=== PATIENT | male | born 1945 | race Caucasian/White ===

== ENCOUNTER 2021-10-12 17:35 | Observation (INO) | payer MEDICARE, OTHER ==
[2021-10-12 18:15] VITALS: TEMP 97.3
[2021-10-12] MEDS ORDERED: ASPIRIN 81 MG PO STA (19:53)
--- NOTE | 2021-10-12 20:24 | ED ---
General Adult HPI - General Chief complaint: Chest Pain Stated complaint: Abnormal EKG-Sent from [facility] Time Seen by Provider: 10/12/21 19:32 Source: patient, RN notes reviewed, old records reviewed Mode of arrival: ambulatory Limitations: no limitations - History of Present Illness Initial comments: Patient is a 76-year-old male with past medical history remarkable for cataract surgery this morning who incidentally was found to be in atrial fibrillation rate controlled at a surgery. He called his PCP who instructed him to come to the emergency department for evaluation. Denies any acute complaints including chest pain, shortness breath, abdominal pain, nausea, vomiting. States he has no prior history of atrial fibrillation. States he does have a history of DVT over 10 years ago. Denies any other acute complaints at this time. Patient w ould like to go home. He was evaluated when he was placed in a room. - Related Data Home Medications Medication Instructions Recorded Confirmed Ketorolac 0.5% Ophth Soln [Acular 1 drops RIGHT EYE QID 10/12/21 10/12/21 0.5%] Ofloxacin 0.3% Ophth Soln [Ocuflox 1 drops RIGHT EYE QID 10/12/21 10/12/21 Ophth Soln] prednisoLONE ACETATE 1% OPHTH 1 drops RIGHT EYE QID 10/12/21 10/12/21 [Pred Forte 1%] Allergies Allergy/AdvReac Type Severity Reaction Status Date / Time No Known Allergies Allergy Unverified 10/12/21 20:48 Review of Systems ROS Statement: Those systems with pertinent positive or pertinent negative responses have been documented in the HPI. Review of Systems: CONST: Denies fever EYES: Denies blurry vision ENT: Denies nasal congestion C/V: Denies Chest pain RESP: Denies shortness of breath GI: Denies abdominal pain : Denies dysuria SKIN: Denies rash. MSK: Denies joint pain. NEURO: Denies headache ROS Other: All systems not noted in ROS Statement are negative. General Exam - General Exam Comments Initial Comments: General: Appears in no acute distress. HEAD: Normal with no signs of head trauma. EYES: EOMI. Pupils are equal bilaterally. Patient does have an eye shield over the right eye the site of a cataract surgery this morning. ENT: Hearing grossly intact, normal oropharynx. RESPIRATORY: Clear breath sounds bilaterally. No wheezes, rales, or rhonchi. C/V: Irregular rhythm with a irregular rate. S1 and S2 auscultated. No pulses are 2+ and intact throughout. No peripheral edema. ABD: Abd is soft, nontender, nondistended EXT: Normal range of motion, no obvious deformity SKIN: No rashes or lesions observed on exposed skin. NEURO: Alert and oriented 4. No focal deficits. Limitations: no limitations Course Vital Signs 10/12/21 18:11 Temperature 97.3 F L Pulse Rate 106 H Respiratory 19 Rate Blood Pressure 158/79 O2 Sat by Pulse 97 Oximetry Medical Decision Making - Medical Decision Making Patient is a 76-year-old male in good health who presents emergency Department with incidental finding of new onset atrial fibrillation that is currently rate controlled. He is on no cardiac medications. We'll obtain basic cardiac labs at this time as well as an EKG and chest x-ray. I will provide him with an aspirin. He will likely be admitted to the hospital. Patient was in agreement this plan. Patient's EKG shows atrial fibrillation without RVR. No signs of acute ischemia. Chest x-ray shows no acute cardiopulmonary process. Laboratory studi es are remarkable for a normal troponin. Remainder of the labs are unremarkable. Covid swab was negative. After the patient on the findings of his labs and imaging. Due to his new onset atrial fibrillation the difficulty following up with outpatient cardiology at this time secondary to the pandemic I did recommend that we admit him to the hospital for cardiology evaluation. I will order an echo as well as a heparin drip for him. Patient was in agreement this plan. I consult to cardiology to evaluate the patient the morning. I spoke with the admitting team, LILY Bishop who stepped of the patient. Patient was therefore admitted to a telemetry bed in stable condition. - Lab Data Result diagrams: 10/12/21 20:36 10/12/21 20:36 Lab Results 10/12/21 10/12/21 10/12/21 Range/Units 20:36 20:36 20:36 WBC 7.4 (3.8-10.6) k/uL RBC 5.38 (4.30-5.90) m/uL Hgb 17.0 (13.0-17.5) gm/dL Hct 51.8 (39.0-53.0) % MCV 96.3 (80.0-100.0) fL MCH 31.5 (25.0-35.0) pg MCHC 32.7 (31.0-37.0) g/dL RDW 12.0 (11.5-15.5) % Plt Count 200 (150-450) k/uL MPV 8.2 Neutrophils % 60 % Lymphocytes % 28 % Monocytes % 6 % Eosinophils % 1 % Basophils % 1 % Neutrophils # 4.4 (1.3-7.7) k/uL Lymphocytes # 2.1 (1.0-4.8) k/uL Monocytes # 0.5 (0-1.0) k/uL Eosinophils # 0.1 (0-0.7) k/uL Basophils # 0.1 (0-0.2) k/uL PT 10.4 (9.0-12.0) sec INR 1.0 (<1.2) APTT 23.3 (22.0-30.0) sec Sodium 140 (137-145) mmol/L Potassium 5.0 (3.5-5.1) mmol/L Chloride 106 (98-107) mmol/L Carbon Dioxide 25 (22-30) mmol/L Anion Gap 9 mmol/L BUN 26 H (9-20) mg/dL Creatinine 0.94 (0.66-1.25) mg/dL Est GFR (CKD-EPI)AfAm 90 (>60 ml/min/1.73 sqM) Est GFR (CKD-EPI)NonAf 78 (>60 ml/min/1.73 sqM) Glucose 113 H (74-99) mg/dL Calcium 9.6 (8.4-10.2) mg/dL Magnesium 2.2 (1.6-2.3) mg/dL Total Bilirubin 1.2 (0.2-1.3) mg/dL AST 25 (17-59) U/L ALT 27 (4-49) U/L Alkaline Phosphatase 48 (38-126) U/L Troponin I (0.000-0.034) ng/mL Total Protein 7.1 (6.3-8.2) g/dL Albumin 4.3 (3.5-5.0) g/dL 10/12/ Range/Units 20:36 WBC (3.8-10.6) k/uL RBC (4.30-5.90) m/uL Hgb (13.0-17.5) gm/dL Hct (39.0-53.0) % MCV (80.0-100.0) fL MCH (25.0-35.0) pg MCHC (31.0-37.0) g/dL RDW (11.5-15.5) % Plt Count (150-450) k/uL MPV Neutrophils % % Lymphocytes % % Monocytes % % Eosinophils % % Basophils % % Neutrophils # (1.3-7.7) k/uL Lymphocytes # (1.0-4.8) k/uL Monocytes # (0-1.0) k/uL Eosinophils # (0-0.7) k/uL Basophils # (0-0.2) k/uL PT (9.0-12.0) sec INR (<1.2) APTT (22.0-30.0) sec Sodium (137-145) mmol/L Potassium (3.5-5.1) mmol/L Chloride (98-107) mmol/L Carbon Dioxide (22-30) mmol/L Anion Gap mmol/L BUN (9-20) mg/dL Creatinine (0.66-1.25) mg/dL Est GFR (CKD-EPI)AfAm (>60 ml/min/1.73 sqM) Est GFR (CKD-EPI)NonAf (>60 ml/min/1.73 sqM) Glucose (74-99) mg/dL Calcium (8.4-10.2) mg/dL Magnesium (1.6-2.3) mg/dL Total Bilirubin (0.2-1.3) mg/dL AST (17-59) U/L ALT (4-49) U/L Alkaline Phosphatase (38-126) U/L Troponin I <0.012 (0.000-0.034) ng/mL Total Protein (6.3-8.2) g/dL Albumin (3.5-5.0) g/dL - EKG Data -: EKG Interpreted by Me EKG Comments: 12-lead Electrocardiogram Interpretation Note EKG was reviewed and interpreted by myself. 12-lead ECG performed at 1809 is interpreted by me as revealing atrial fibrillation at a rate of 76 beats per minute. Gillespie is normal. AR interval is unobtainable. QRS duration is 138 ms. QTC is 456 ms.. As an isolated T-wave inversion in lead III.. R wave progr ession across the precordium was satisfactory. By my interpretation this EKG is non-diagnostic for acute ischemia. This is new onset atrial fibrillation. No prior EKG for comparison. Disposition Clinical Impression: Atrial fibrillation, History of cataract surgery Disposition: ADMITTED IP TO THIS HOSP Condition: Stable
[2021-10-12 21:05] LABS: Basophils # (A) 0.1 k/uL (0-0.2); Basophils % (A) 1 %; Eosinophils # (A) 0.1 k/uL (0-0.7); Eosinophils % (A) 1 %; HCT 51.8 % (39.0-53.0); Lymphocytes # (A) 2.1 k/uL (1.0-4.8); Lymphocytes % (A) 28 %; MCH 31.5 pg (25.0-35.0); MCHC 32.7 g/dL (31.0-37.0); MCV 96.3 fL (80.0-100.0); Mean Platelet Volume 8.2; Monocytes # (A) 0.5 k/uL (0-1.0); Monocytes % (A) 6 %; Neutrophils # (A) 4.4 k/uL (1.3-7.7); Neutrophils % (A) 60 %; Platelet Count 200 k/uL (150-450); RBC 5.38 m/uL (4.30-5.90); WBC 7.4 k/uL (3.8-10.6)
--- NOTE | 2021-10-12 21:14 | XR ---
EXAMINATION TYPE: XR chest 2V DATE OF EXAM: 10/12/2021 COMPARISON: NONE HISTORY: Abnormal cardiogram. Atrial fibrillation. TECHNIQUE: 2 views FINDINGS: Heart and mediastinum are normal. Lungs are clear. Diaphragm is normal. Bony thorax is inta ct. There are chest leads. IMPRESSION: No active cardiopulmonary disease. Normal heart.
[2021-10-12 21:15] LABS: Partial Thromboplastin Time 23.3 sec (22.0-30.0); Prothrombin Time 10.4 sec (9.0-12.0)
[2021-10-12 21:32] LABS: Albumin 4.3 g/dL (3.5-5.0); Calcium 9.6 mg/dL (8.4-10.2); Magnesium 2.2 mg/dL (1.6-2.3); Total Bilirubin 1.2 mg/dL (0.2-1.3); Total Protein 7.1 g/dL (6.3-8.2)
[2021-10-12] MEDS ORDERED: HEPARIN SOD,PORK IN 0.45% NACL 25,000 UNIT in 0.45% NACL 1 250ML.BAG IV SCH (21:45)
[2021-10-12] MEDS ORDERED: HEPARIN SODIUM 1,000 UN/ML (10ML VL) IV ONE (21:45)
[2021-10-12] MEDS ORDERED: HEPARIN SODIUM 1,000 UN/ML (10ML VL) IV PRN (21:45)
[2021-10-12] MEDS ORDERED: NALOXONE 0.4 MG/ML 1 ML VIAL IV PRN (21:56)
[2021-10-12] MEDS: OFLOXACIN 0.3% OPHTH DROPS 5 ML BOTTLE RIGHT EYE SCH (22:41)
[2021-10-12] MEDS: KETOROLAC 0.5% OPHTH DROPS 5 ML BTL RIGHT EYE SCH (22:41)
[2021-10-12] MEDS: prednisoLONE ACETATE 1% OPHTH DROPS 5 ML BTL RIGHT EYE SCH (22:42)
[2021-10-13 04:12] LABS: Basophils # (A) 0.1 k/uL (0-0.2); Basophils % (A) 1 %; Eosinophils # (A) 0.1 k/uL (0-0.7); Eosinophils % (A) 2 %; HCT 48.3 % (39.0-53.0); HGB 15.9 gm/dL (13.0-17.5); Lymphocytes # (A) 2.3 k/uL (1.0-4.8); Lymphocytes % (A) 35 %; MCH 31.8 pg (25.0-35.0); MCHC 32.9 g/dL (31.0-37.0); MCV 96.8 fL (80.0-100.0); Mean Platelet Volume 8.4; Monocytes # (A) 0.7 k/uL (0-1.0); Monocytes % (A) 10 %; Neutrophils # (A) 3.2 k/uL (1.3-7.7); Neutrophils % (A) 49 %; Platelet Count 180 k/uL (150-450); RBC 4.99 m/uL (4.30-5.90); RDW 12.2 % (11.5-15.5); WBC 6.6 k/uL (3.8-10.6)
[2021-10-13 04:21] LABS: African American GFR (CKD) >90 (>60 ml/min/1.73 sqM); Anion Gap 5 mmol/L; Blood Urea Nitrogen 23 mg/dL (9-20); Calcium 9.2 mg/dL (8.4-10.2); Carbon Dioxide 27 mmol/L (22-30); Chloride 107 mmol/L (98-107); Glucose 105 mg/dL (74-99); Non-African American GFR(CKD) 82 (>60 ml/min/1.73 sqM); Potassium 4.1 mmol/L (3.5-5.1); Sodium 139 mmol/L (137-145)
[2021-10-13 04:23] LABS: Partial Thromboplastin Time 36.8 sec (22.0-30.0); Prothrombin Time 10.7 sec (9.0-12.0)
[2021-10-13 07:03] VITALS: BP 152/86; PULSE 81; RESP 17
[2021-10-13] MEDS ORDERED: APIXABAN 5 MG TAB PO SCH (09:30)
[2021-10-13] MEDS: prednisoLONE ACETATE 1% OPHTH DROPS 5 ML BTL RIGHT EYE SCH (10:03)
[2021-10-13] MEDS: KETOROLAC 0.5% OPHTH DROPS 5 ML BTL RIGHT EYE SCH (10:03)
[2021-10-13] MEDS: OFLOXACIN 0.3% OPHTH DROPS 5 ML BOTTLE RIGHT EYE SCH (10:03)
--- NOTE | 2021-10-13 10:08 | P.HPIM ---
History of Present Illness Please consider this combined H&P and discharge summary This is a pleasant 76 years old male with no significant past medical history Patient was having cataract surgery yesterday when he noticed he has an abnormal EKG with Prashant upton so he was referred to the PCP and the [facility] who referred him to the emergency room Patient denies any chest pain or dyspnea. No abdominal pain. No change in urine or bowel habits. No fever. He has a dressing over his right eye. He never smoked, no alcohol or illicit drugs Vitals stable, heart rate was 106, R on was 60-81. Pulse are stable. Labs including CBC, INR, BMP and liver enzymes are unremarkable. On in 3 are negative as an 0.012. Torres virus not detected EKG showed atrial fibrillation at [address]-T changes and QTC 456 Chest x-ray: No acute process. Emergency room patient was started on heparin drip. Review of Systems CONSTITUTIONAL: No fever, no malaise, no fatigue. HEENT: No recent visual problems or hearing problems. Denied any sore throat. CARDIOVASCULAR: No orthopnea, PND, no palpitations, no syncope. PULMONARY: No shortness of breath, no cough, no hemoptysis. GASTROINTESTINAL: No diarrhea, no nausea, no vomiting, no abdominal pain. Normoactive bowel sounds. NEUROLOGICAL: No headaches, no weakness, no numbness. HEMATOLOGICAL: Denies any bleeding or petechiae. GENITOURINARY: Denies any burning micturition, frequency, or urgency. MUSCULOSKELETAL/RHEUMATOLOGICAL: Denies any joint pain, swelling, or any muscle pain. ENDOCRINE: Denies any polyuria or polydipsia. Medications and Allergies Home Medications Medication Instructions Recorded Confirmed Type Ketorolac 0.5% Ophth Soln [Acular 1 drops RIGHT EYE QID 10/12/21 10/12/21 Hist ory 0.5%] Ofloxacin 0.3% Ophth Soln [Ocuflox 1 drops RIGHT EYE QID 10/12/21 10/12/21 History Ophth Soln] prednisoLONE ACETATE 1% OPHTH 1 drops RIGHT EYE QID 10/12/21 10/12/21 History [Pred Forte 1%] Apixaban [Eliquis] 5 mg PO BID #60 tab 10/13/21 Rx Allergies Allergy/AdvReac Type Severity Reaction Status Date / Time No Known Allergies Allergy Unverified 10/12/21 20:48 Physical Exam Vitals: Vital Signs Temp Pulse Resp BP Pulse Ox 10/13/21 07:00 81 17 152/86 98 10/13/21 02:00 60 19 139/80 96 10/12/21 18:11 97.3 F L 106 H 19 158/79 97 Intake and Output 10/12/21 10/13/21 10/13/21 22:59 06:59 14:59 Intake Total 65.833 Balance 65.833 Intake: Intake, IV Titration 65.833 Amount Heparin Sod,Pork in 0.45% 65.833 NaCl 25,000 unit In 0.45 % NaCl 1 250ml.bag @ 10. 702 UNITS/KG/HR 10 mls/hr IV .Q24H [facility] Rx#: [id number] Other: Weight 93.44 kg GENERAL: The patient is alert and oriented x3, not in any acute distress. Well developed, well nourished. -HEENT: Pupils are round and equally reacting to light. EOMI. No scleral icterus. No conjunctival pallor. Normocephalic, atraumatic. No pharyngeal erythema. No thyromegaly. Patch on his right eye CARDIOVASCULAR: S1 and S2 present. No murmurs, rubs, or gallops. PULMONARY: Chest is clear to auscultation, no wheezing or crackles. ABDOMEN: Soft, nontender, nondistended, normoactive bowel sounds. No palpable organomegaly. MUSCULOSKELETAL: No joint swelling or deformity. EXTREMITIES: No cyanosis, clubbing, or pedal edema. NEUROLOGICAL: Gross neurological examination did not reveal any focal deficits. SKIN: No rashes. No petechiae Results CBC & Chem 7: 10/13/21 03:34 10/13/21 03:34 Labs: Abnormal Lab Results - Last 24 Hours (Table) 10/12/21 10/13/21 10/13/21 Range/Units 20:36 03:34 03:34 APTT 36.8 H (22.0-30.0) sec BUN 26 H 23 H (9-20) mg/dL Glucose 113 H 105 H (74-99) mg/dL Assessment and Plan Assessment: New-onset A. fib Recent history of right eye cataract Plan: This is a pleasant 76 years old male who presents with new onset A. fib. Cardiology consult. I discussed the case with Dr. Gregory who recommended to start him on Eliquis and cleared him for discharge after that with her condition for follow-up in 2 weeks, patient made aware of these recommendations states he will follow-up I explained to the patient the benefits of the risk of liquids including but not limited to the risk of brain bleed and he agrees with treatment for now medication are reviewed.. Continue same treatment. Continue with symptomatic treatment. Resume home medication. Monitor lytes and vitals. DVT and GI prophylaxis. Further recommendations depends on the clinical course of the patient DVT prophylaxis: Eliquis I discussed with the dependency case manager Geena, patient has [facility] therefore this facility will cover his Eliquis with 1 month of free coupon, and he was informed to follow up his [facility] office this coming week for further Eliquis refill. Also patient was instructed to follow up with his [facility] office in one week and he agrees to call and make appointment
--- NOTE | 2021-10-13 12:01 | ECHOF ---
Referral Reason:new onset afib MEASUREMENTS -------- HEIGHT: 180.3 cm WEIGHT: 93.4 kg BP: 139/80 RVIDd: 3.6 cm (< 3.3) IVSd: 1.2 cm (0.6 - 1.1) LVIDd: 4.7 cm (3.9 - 5.3) LVPWd: 1.2 cm (0.6 - 1.1) IVSs: 1.8 cm LVIDs: 2.9 cm LVPWs: 1.8 cm LA Diam: 4.3 cm (2.7 - 3.8) LAESV Index (A-L): 39.81 ml/m Ao Diam: 3.7 cm (2.0 - 3.7) AV Cusp: 2.4 cm (1.5 - 2.6) MV EXCURSION: 15.271 mm (> 18.000) MV EF SLOPE: 157 mm/s (70 - 150) EPSS: 1.8 cm AR PHT: 592 ms RAP: 5.00 mmHg RVSP: 40.70 mmHg FINDINGS -------- Atrial fibrillation. This was a technically good study. The left ventricular size is normal. There is borderline concentric left ventricular hypertrophy. Overall left ventricular systolic function is normal with, an EF between 60 - 65 %. The right ventricle is mildly enlarged. LA is moderately dilated 34-39 ml/m2 The right atrium is normal in size. Interatrial and interventricular septum intact. There is mild aortic regurgitation. Mild mitral regurgitation is present. Mild tricuspid regurgitation present. There is mild pulmonary hypertension. The right ventricular systolic pressure, as measured by Doppler, is 40.70mmHg. Trace/mild (physiologic) pulmonic regurgitation. The aortic root size is normal. Normal inferior vena cava with normal inspiratory collapse consistent with estimated right atrial pre ssure of 5 mmHg. The inferior vena cava is mildly dilated. There is no pericardial effusion. CONCLUSIONS -------- 1. The left ventricular size is normal. 2. There is borderline concentric left ventricular hypertrophy. 3. Overall left ventricular systolic function is normal with, an EF between 60 - 65 %. 4. The right ventricle is mildly enlarged. 5. LA is moderately dilated 34-39 ml/m2 6. There is mild aortic regurgitation. 7. Mild mitral regurgitation is present. 8. Mild tricuspid regurgitation present. 9. There is mild pulmonary hypertension. 10. The right ventricular systolic pressure, as measured by Doppler, is 40.70mmHg. 11. Trace/mild (physiologic) pulmonic regurgitation. 12. The inferior vena cava is mildly dilated. 13. There is no pericardial effusion. MANUAL QA TESTER: Latisha Franklin RDCS
--- NOTE | 2021-10-13 12:55 | P.CRDCN ---
History of Present Illness Consult date: 10/13/21 History of present illness: HISTORY OF PRESENT ILLNESS: This is a 76 year old male with no significant past medical history. The patient does not follow with a head of marketing. We have been asked to see the patient in consultation for atrial fibrillation. Patient examined at the bedside. The patient underwent cataract surgery yesterday. The patient was found to be in atrial fibrillation and was directed to the ER for further evaluation. The patient denies a history of atrial fibrillation. The patients heart rate has been controlled. He was started on IV heparin. He denies any chest pain or pressure. Denies SOB. Denies palpitations. The patient is a nonsmoker. He denies any drug use. He states he is a daily wine drinker and drinks a pproximately 3 glasses of wine per day. He [facility]. He denies ever having a cardiac workup in the past. He does report that his dad had a "hole in his heart" EKG reveals atrial fibrillation with controlled ventricular rate Chest xray no active cardiopulmonary disease Laboratory data: WBC 6.6. Hemoglobin 15.9. Platelet count 180. Sodium 139. Potassium 4.1. BUN 23. Creatinine 0.90. Troponin negative 3. Echocardiogram obtained revealed ejection fraction 60-65%, mild aortic regurgitation, mild mitral regurgitation, mild tricuspid regurgitation, and mild pulmonary hypertension REVIEW OF SYSTEMS: At the time of my exam: CONSTITUTIONAL: Denies fever or chills. HEENT: Denies blurred vision, vision changes, or eye pain. Denies hemoptysis CARDIOVASCULAR: Denies chest pain. Denies orthopnea. Denies PND. Denies palpitations RESPIRATORY: Denies shortness of breath. GASTROINTESTINAL: Denies abdominal pain. Denies nausea or vomiting. HEMATOLOGIC: Denies bleeding disorders. GENITOURINARY: Denies any blood in urine. SKIN: Denies pruitis. Denies rash. PHYSICAL EXAM: VITAL SIGNS: Reviewed. GENERAL: Well-developed in no acute distress. HEENT: Head is normocephalic. Pupils are equal, round. Sclerae anicteric. Mucous membranes of the mouth are moist. Neck supple. No JVD or thyromegaly LUNGS: Respirations even and unlabored. Lungs essentially clear to auscultation bilaterally. HEART: Irregular rate and rhythm. S1 and S2 heard. ABDOMEN: Soft. Nondistended. Nontender. EXTREMITIES: Normal range of motion. No clubbing or cyanosis. Peripheral pulses intact. No lower extremity edema NEUROLOGIC: Awake and alert. Oriented x 3. ASSESSMENT: S/P cataract surgery Newly diagnosed persistent atrial fibrillation, duration of afib unknown Daily alcohol use PLAN: Check TSH 2D echo obtained and reviewed No need for beta manda at this time Begin Eliquis 5mg BID Further recommendations pending patient course Nurse practitioner note has been reviewed by physician. Signing provider agrees with the documented findings, assessment, and plan of care. Medications and Allergies Home Medications Medication Instructions Recorded Confirmed Type Ketorolac 0.5% Ophth Soln [Acular 1 drops RIGHT EYE QID 10/12/21 10/12/21 History 0.5%] Ofloxacin 0.3% Ophth Soln [Ocuflox 1 drops RIGHT EYE QID 10/12/21 10/12/21 History Ophth Soln] prednisoLONE ACETATE 1% OPHTH 1 drops RIGHT EYE QID 10/12/21 10/12/21 History [Pred Forte 1%] Apixaban [Eliquis] 5 mg PO BID #60 tab 10/13/21 Rx Allergies Allergy/AdvReac Type Severity Reaction Status Date / Time No Known Allergies Allergy Unverified 10/12/21 20:48 Physical Exam Vitals: Vital Signs Temp Pulse Resp BP Pulse Ox 10/13/21 07:00 81 17 152/86 98 10/13/21 02:00 60 19 139/80 96 10/12/21 18:11 97.3 F L 106 H 19 158/79 97 Intake and Output 10/12/21 10/13/21 10/13/21 22:59 06:59 14:59 Intake Total 65.833 Balance 65.833 Intake: Intake, IV Titration 65.833 Amount Heparin Sod,Pork in 0.45% 65.833 NaCl 25,000 unit In 0.45 % NaCl 1 250ml.bag @ 10. 702 UNITS/KG/HR 10 mls/hr IV .Q24H [facility] Rx#: [id number] Other: Weight 93.44 kg Results 10/13/21 03:34 10/13/21 03:34 Cardiac Enzymes 10/12/21 10/12/21 10/13/21 Range/Units 20:36 20:36 00:45 AST 25 (17-59) U/L Troponin I <0.012 <0.012 (0.000-0.034) ng/mL 10/13/21 Range/Units 03:34 AST (17-59) U/L Troponin I <0.012 (0.000-0.034) ng/mL Coagulation 10/12/21 10/13/21 Range/Units 20:36 03:34 PT 10.4 10.7 (9.0-12.0) sec APTT 23.3 36.8 H (22.0-30.0) sec CBC 10/12/21 10/13/21 Range/Units 20:36 03:34 WBC 7.4 6.6 (3.8-10.6) k/uL RBC 5.38 4.99 (4.30-5.90) m/uL Hgb 17.0 15.9 (13.0-17.5) gm/dL Hct 51.8 48.3 (39.0-53.0) % Plt Count 200 180 (150-450) k/uL Comprehensive Metabolic Panel 10/12/21 10/13/21 Range/Units 20:36 03:34 Sodium 140 139 (137-145) mmol/L Potassium 5.0 4.1 (3.5-5.1) mmol/L Chloride 106 107 (98-107) mmol/L Carbon Dioxide 25 27 (22-30) mmol/L BUN 26 H 23 H (9-20) mg/dL Creatinine 0.94 0.90 (0.66-1.25) mg/dL Glucose 113 H 105 H (74-99) mg/dL Calcium 9.6 9.2 (8.4-10.2) mg/dL AST 25 (17-59) U/L ALT 27 (4-49) U/L Alkaline Phosphatase 48 (38-126) U/L Total Protein 7.1 (6.3-8.2) g/dL Albumin 4.3 (3.5-5.0) g/dL Current Medications Generic Name Dose Route Start Last Admin Trade Name Freq PRN Reason Stop Dose Admin Heparin Sodium (Porcine) 0 unit 10/12/21 21:45 10/13/21 04:52 Heparin Sodium 1,000 Un/Ml (10ml Vl) IV 2,336 unit PER PROTOCOL PRN Administration Low PTT Protocol Heparin Sodium/Sodium Chloride 250 mls @ 10 mls/hr 10/12/21 21:45 10/13/21 04:53 25,000 unit/ Sodium Chloride IV 12.702 units/kg/hr .Q24H ROBBIE 11.869 mls/hr Titration Protocol 10.702 UNITS/KG/HR Ketorolac Tromethamine 1 drops 10/12/21 22:00 10/12/21 22:41 Ketorolac 0.5% Ophth Drops 5 Ml Btl RIGHT EYE 1 drops QID ROBBIE Administration Naloxone HCl 0.2 mg 10/12/21 21:56 Naloxone 0.4 Mg/Ml 1 Ml Vial IV Q2M PRN Opioid Reversal Ofloxacin 1 drops 10/12/21 22:00 10/12/21 22:41 Ofloxacin 0.3% Ophth Drops 5 Ml Bottle RIGHT EYE 1 drops QID ROBBIE Administration Prednisolone Acetate 1 drops 10/12/21 22:00 10/12/21 22:42 Prednisolone Acetate 1% Ophth Drops 5 Ml Btl RIGHT EYE 1 drops QID ROBBIE Administration Intake and Output 10/12/21 10/13/21 10/13/21 22:59 06:59 14:59 Intake Total 65.833 Balance 65.833 Intake: Intake, IV Titration 65.833 Amount Heparin Sod,Pork in 0.45% 65.833 NaCl 25,000 unit In 0.45 % NaCl 1 250ml.bag @ 10. 702 UNITS/KG/HR 10 mls/hr IV .Q24H [facility] Rx#: [id number] Other: Weight 93.44 kg 10/13/21 03:34 10/13/21 03:34
== END 2021-10-13 10:33 | disposition home or self-care (01) ==
LOC: EC 17:35 → 6NMEDSUR 21:56
PROVIDERS: ADMIT Hospitalist; ATTEND Hospitalist
DX: I48.19 Other persistent atrial fibrillation (principal); I08.3 Combined rheumatic disorders of mitral, aortic and tricuspid valves; I27.20 Pulmonary hypertension, unspecified; Z20.822 Contact with and (suspected) exposure to COVID-19; Z98.41 Cataract extraction status, right eye; Z86.718 Personal history of other venous thrombosis and embolism; Z72.89 Other problems related to lifestyle
CPT/HCPCS: 96376 ×2; 96366 ×2; 96365; 99285; 36415; 93005; 93306; 80053; 80048; 84443; 83735; 84484 ×2; 85025 ×2; 85610 ×2; 85730 ×2; 87635; 71046; G0378 ×2; J1644 ×3

== ENCOUNTER 2024-09-05 11:14 | Inpatient (IN) | payer OTHER, MEDICARE ==
--- NOTE | 2024-09-05 12:08 | ED ---
General Adult HPI - General Chief complaint: Shortness of Breath Stated complaint: Chest Pain Time Seen by Provider: 09/05/24 11:40 Source: patient, family, RN notes reviewed, old records reviewed Mode of arrival: wheelchair Limitations: physical limitation - History of Present Illness Initial comments: This is an 79-year-old male who presents to the emergency department stating he is on no medications and has no medical problems. Patient states lately has been becoming weaker and weaker and today someone told him that his pulse was irregular and he needed to go to the emergency department. Patient denies any chest pain or palpitations. Patient denies shortness of breath. Patient denies any headache patient has numbness weakness. Patient has abdominal pain patient has nausea vomiting diarrhea - Related Data Home Medications Medication Instructions Recorded Confirmed Aspirin EC [Ecotrin] 325 mg PO DAILY@1600 09/05/24 09/05/24 Allergies Allergy/AdvReac Type Severity Reaction Status Date / Time No Known Allergies Allergy Verified 09/05/24 12:56 Review of Systems ROS Statement: Those systems with pertinent positive or pertinent negative responses have been documented in the HPI. ROS Other: All systems not noted in ROS Statement are negative. Past Medical History Past Medical History: No Reported History Past Surgical History: Appendectomy, Orthopedic Surgery, Tonsillectomy Additional Past Surgical History / Comment(s): Torn achilles tendon Smoking Status: Never smoker Past Alcohol Use History: Daily Past Drug Use History: None Reported General Exam - General Exam Comments Initial Comments: GENERAL: Patient is well-developed and well-nourished. Patient is nontoxic and well- hydrated and is in mild distress. ENT: Neck is soft and supple. No significant lymphadenopathy is noted. Oropharynx is clear. Moist mucous membranes. Neck has full range of motion without eliciting any pain. EYES: The sclera were anicteric and conjunctiva were pink and moist. Extraocular movements were intact and pupils were equal round and reactive to light. Eye lids were unremarkable. PULMONARY: Unlabored respirations. Good breath sounds bilaterally. No audible rales rhonchi or wheezing was noted. CARDIOVASCULAR: There is a regular rate and rhythm without any murmurs gallops or rubs. ABDOMEN: Soft and nontender with normal bowel sounds. SKIN: Skin is clear with no lesions or rashes and otherwise unremarkable. NEUROLOGIC: Patient is alert and oriented x3. Cranial nerves II through XII are grossly intact. Motor and sensory are also intact. Normal speech, volume and content. Symmetrical smile. MUSCULOSKELETAL: Normal extremities with adequate strength and full range of motion. 1+ edema bilaterally LYMPHATICS: No significant lymphadenopathy is noted PSYCHIATRIC: Normal psychiatric evaluation. Limitations: physical limitation Course Vital Signs 09/05/24 09/05/24 11:20 11:33 Temperature 97.5 F L Pulse Rate 42 L Pulse Rate [ 40 L Card Processing Clerk ] Respiratory 18 Rate Blood Pressure 180/72 O2 Sat by Pulse 95 Oximetry Medical Decision Making - Medical Decision Making EKG is interpreted by myself read EKG shows a junctional rhythm at 53 bpm and PVCs in a bigeminal pattern. QRS is 145 QT interval is 515 QTc is 498. Was pt. sent in by a medical professional or institution (RAMON Martins, AGRONOMY LOCATION MANAGER, urgent care, hospital, or half-way...) When possible be specific @ -No Did you speak to anyone other than the patient for history (EMS, parent, family, police, friend...)? What history was obtained from this source @ -No Did you review nursing and triage notes (agree or disagree)? Why? @ -I reviewed and agree with nursing and triage notes Were old charts reviewed (outside hosp., previous admission, EMS record, old EKG, old radiological studies, urgent care reports/EKG's, half-way records)? Report findings @ -No old charts were reviewed Differential Diagnosis? @ -Chest pain, altered mental status, abdominal pain women, abdominal pain men, vaginal bleeding, weakness, fever, dyspnea, syncope, headache, dizziness, GI bleed, back pain, seizure, CVA, palpatations, mental health, musculoskeletal EKG interpreted by me (3pts min.). @ -As above X-rays interpreted by me (1pt min.). @ -Chest x-ray shows pulmonary vascular congestion CT interpreted by me (1pt min.). @ -None done U/S interpreted by me (1pt. min.). @ -None done What testing was considered but not performed or refused? (CT, X-rays, U/S, labs)? Why? @ -None What meds were considered but not given or refused? Why? @ -None Did you discuss the management of the patient with other professionals (pro fessionals i.e. Dr., PA, AGRONOMY LOCATION MANAGER, lab, RT, psych nurse, social work coordinator, monotype mechanic, teacher, tactical deception plans officer, case planner)? Give summary @ -I spoke with Dr. Lopez he agreed admit the patient admit the patient recommending orders. Was smoking cessation discussed for >3mins.? @ -No Was critical care preformed (if so, how long)? @ -No Were there social determinants of health that impacted care today? How? (Ho melessness, low income, unemployed, alcoholism, drug addiction, transportation, low edu. Level, literacy, decrease access to med. care, care home, rehab)? @ -No Was there de-escalation of care discussed even if they declined (Discuss DNR or withdrawal of care, Hospice)? DNR status @ -No What co-morbidities impacted this encounter? (DM, HTN, Smoking, COPD, CAD, Cancer, CVA, ARF, Chemo, Hep., AIDS, mental health diagnosis, sleep apnea, morbid obesity)? @ -None Was patient admitted / discharged? Hospital course, mention meds given and route, prescriptions, significant lab abnormalities, going to OR and other pertinent info. @ -Patient was in bigeminy when he arrived at a rate end 52. Patient is BNP was elevated he had increased pedal edema and chest x-ray showed pulmonary vascular congestion Undiagnosed new problem with uncertain prognosis? @ -No Drug Therapy requiring intensive monitoring for toxicity (Heparin, Nitro, Insulin, Cardizem)? @ -No Were any procedures done? @ -No Diagnosis/symptom? @ -Bigeminy Acute, or Chronic, or Acute on Chronic? @ -Acute Uncomplicated (without systemic symptoms) or Complicated (systemic symptoms)? @ -Complicated Side effects of treatment? @ -No Exacerbation, Progression, or Severe Exacerbation? @ -No Poses a threat to life or bodily function? How? (Chest pain, [place], AL, pneumonia, PE, COPD, DKA, ARF, appy, cholecystitis, CVA, Diverticulitis, Homicidal, Suicidal, threat to staff... and all critical care pts) @ -No Diagnosis/symptom? @ -Pulmonary edema Acute, or Chronic, or Acute on Chronic? @ -Acute Uncomplicated (without systemic symptoms) or Complicated (systemic symptoms)? @ -Complicated Side effects of treatment? @ -None Exacerbation, Progression, or Severe Exacerbation] @ -No Poses a threat to life or bodily function? @ -Yes this can lead to hypoxia and endorgan dysfunction - Lab Data Result diagrams: 09/05/24 12:17 09/05/24 12:17 Lab Results 09/05/24 09/05/24 09/05/24 Range/Units 12:17 12:17 12:17 WBC 7.5 (3.8-10.6) k/uL RBC 4.94 (4.30-5.90) m/uL Hgb 16.0 (13.0-17.5) gm/dL Hct 49.2 (39.0-53.0) % MCV 99.6 (80.0-100.0) fL MCH 32.4 (25.0-35.0) pg MCHC 32.6 (31.0-37.0) g/dL RDW 12.9 (11.5-15.5) % Plt Count 161 (150-450) k/uL MPV 9.4 Neutrophils % 65 % Lymphocytes % 21 % Monocytes % 8 % Eosinophils % 3 % Basophils % 1 % Neutrophils # 4.9 (1.3-7.7) k/uL Lymphocytes # 1.6 (1.0-4.8) k/uL Monocytes # 0.6 (0-1.0) k/uL Eosinophils # 0.2 (0-0.7) k/uL Basophils # 0.0 (0-0.2) k/uL PT 13.0 H (10.0-12.5) sec INR 1.2 H (<1.2) APTT 24.8 (22.0-30.0) sec Sodium 142 (137-145) mmol/L Potassium 4.8 (3.5-5.1) mmol/L Chloride 109 H (98-107) mmol/L Carbon Dioxide 23 (22-30) mmol/L Anion Gap 10 mmol/L BUN 21 H (9-20) mg/dL Creatinine 0.96 (0.66-1.25) mg/dL Est GFR (CKD-EPI)AfAm 86 (>60 ml/min/1.73 sqM) Est GFR (CKD-EPI)NonAf 74 (>60 ml/min/1.73 sqM) Glucose 100 H (74-99) mg/dL Plasma Lactic Acid Jose (0.7-2.0) mmol/L Calcium 9.0 (8.4-10.2) mg/dL Magnesium 2.1 (1.6-2.3) mg/dL Total Bilirubin 2.8 H (0.2-1.3) mg/dL AST 29 (17-59) U/L ALT 29 (4-49) U/L Alkaline Phosphatase 54 (38-126) U/L Troponin I (0.000-0.034) ng/mL NT-Pro-B Natriuret Pep 3540 pg/mL Total Protein 6.7 (6.3-8.2) g/dL Albumin 4.3 (3.5-5.0) g/dL 09/05/24 09/05/24 Range/Units 12:17 12:17 WBC (3.8-10.6) k/uL RBC (4.30-5.90) m/uL Hgb (13.0-17.5) gm/dL Hct (39.0-53.0) % MCV (80.0-100.0) fL MCH (25.0-35.0) pg MCHC (31.0-37.0) g/dL RDW (11.5-15.5) % Plt Count (150-450) k/uL MPV Neutrophils % % Lymphocytes % % Monocytes % % Eosinophils % % Basophils % % Neutrophils # (1.3-7.7) k/uL Lymphocytes # (1.0-4.8) k/uL Monocytes # (0-1.0) k/uL Eosinophils # (0-0.7) k/uL Basophils # (0-0.2) k/uL PT (10.0-12.5) sec INR (<1.2) APTT (22.0-30.0) sec Sodium (137-145) mmol/L Potassium (3.5-5.1) mmol/L Chloride (98-107) mmol/L Carbon Dioxide (22-30) mmol/L Anion Gap mmol/L BUN (9-20) mg/dL Creatinine (0.66-1.25) mg/dL Est GFR (CKD-EPI)AfAm (>60 ml/min/1.73 sqM) Est GFR (CKD-EPI)NonAf (>60 ml/min/1.73 sqM) Glucose (74-99) mg/dL Plasma Lactic Acid Jose 2.2 H* (0.7-2.0) mmol/L Calcium (8.4-10.2) mg/dL Magnesium (1.6-2.3) mg/dL Total Bilirubin (0.2-1.3) mg/dL AST (17-59) U/L ALT (4-49) U/L Alkaline Phosphatase (38-126) U/L Troponin I 0.031 (0.000-0.034) ng/mL NT-Pro-B Natriuret Pep pg/mL Total Protein (6.3-8.2) g/dL Albumin (3.5-5.0) g/dL Disposition Clinical Impression: Bigeminy, Acute pulmonary edema Disposition: ADMITTED IP TO THIS HOSP Referrals: [facility],Clinic [Primary Care Provider] - 1-2 days Time of Disposition: 14:29
[2024-09-05 12:27] LABS: Basophils % (A) 1 %; Eosinophils # (A) 0.2 k/uL (0-0.7); Eosinophils % (A) 3 %; HCT 49.2 % (39.0-53.0); Lymphocytes # (A) 1.6 k/uL (1.0-4.8); Lymphocytes % (A) 21 %; MCH 32.4 pg (25.0-35.0); MCHC 32.6 g/dL (31.0-37.0); MCV 99.6 fL (80.0-100.0); Mean Platelet Volume 9.4; Monocytes # (A) 0.6 k/uL (0-1.0); Monocytes % (A) 8 %; Neutrophils # (A) 4.9 k/uL (1.3-7.7); Neutrophils % (A) 65 %; Platelet Count 161 k/uL (150-450); RBC 4.94 m/uL (4.30-5.90); RDW 12.9 % (11.5-15.5); WBC 7.5 k/uL (3.8-10.6)
[2024-09-05 12:47] LABS: INR 1.2 (<1.2); Partial Thromboplastin Time 24.8 sec (22.0-30.0)
[2024-09-05 12:52] LABS: ALT 29 U/L (4-49); AST 29 U/L (17-59); African American GFR (CKD) 86 (>60 ml/min/1.73 sqM); Albumin 4.3 g/dL (3.5-5.0); Alkaline Phosphatase 54 U/L (38-126); Anion Gap 10 mmol/L; Blood Urea Nitrogen 21 mg/dL (9-20); Carbon Dioxide 23 mmol/L (22-30); Chloride 109 mmol/L (98-107); Glucose 100 mg/dL (74-99); Magnesium 2.1 mg/dL (1.6-2.3); Non-African American GFR(CKD) 74 (>60 ml/min/1.73 sqM); Potassium 4.8 mmol/L (3.5-5.1); Sodium 142 mmol/L (137-145); Total Bilirubin 2.8 mg/dL (0.2-1.3); Total Protein 6.7 g/dL (6.3-8.2)
[2024-09-05 12:59] LABS: NT-Pro-B-Type Natriuretic Pept 3540 pg/mL
--- NOTE | 2024-09-05 14:56 | XR ---
EXAMINATION TYPE: XR chest 2V DATE OF EXAM: 09/05/2024 COMPARISON: 10/12/2021 TECHNIQUE: PA and lateral views submitted. HISTORY: Difficulty breathing FINDINGS: The heart is enlarged and there is a subsegmental right basilar consolidation and small effusion. No pneumothorax. Osseous structures stable. Degenerative changes of the spine arthropathy of the shoulde rs. Ectasia of the thoracic aorta. Left lower lobe calcified granuloma. IMPRESSION: 1. Right basilar infiltrate and small effusion. Mild central venous congestion or interstitial pneumo nitis in the differential diagnosis. [facility], , 09/05/2024 1:15 PM
[2024-09-05] MEDS ORDERED: hydrALAZINE HCL 20 MG/ML 1 ML VIAL IVP PRN (15:35)
--- NOTE | 2024-09-05 15:39 | P.HPIM ---
History of Present Illness H&P Date: 09/05/24 Chief Complaint: shortness of breath Patient is a 79-year-old male with past medical history of atrial fibrillation who does not take any medications because he is concerned about the side effects was sent to the ED by his PCP at [facility] to be evaluated for his shortness of breath. Patient states that for the past 2 weeks his shortness of breath has been getting worse and now it is to the point where he has to sit down and catch his breath every few feet. Patient states that 4 months ago he transitioned from bed to recliner because of shortness of breath. Patient states that when he eats high salt foods he gets worsening swelling in his lower extremities. When he saw his PCP he was told to come into the ED to be evaluated for abnormal heart rhythm and also for volume overload. In the ED patient's lactic acid was mildly elevated 2.2, total bilirubin 2.8, troponin 0.031, BNP 3540. ROS: 10 ROS reviewed and are negative except as noted in HPI Physical exam General: [Alert and oriented, well nourished, no acute distress]. Eye: [PERRL, EOMI, normal conjunctiva]. HENT: [Normocephalic, clear tympanic membranes, normal hearing, moist oral mucosa, no scleral icterus, no sinus tenderness]. Neck: [Supple, non-tender, no carotid bruits, no JVD, no lymphadenopathy]. Lungs: [Diminished breath sounds bilaterally]. Heart: [Normal rate, regular rhythm, no murmur, gallop, + 2 pitting edema bilateral lower extremities]. Abdomen: [Soft, non-tender, non-distended, normal bowel sounds, no masses]. Musculoskeletal: [Normal range of motion and strength]. Skin: [Skin is warm, dry and pink, no rashes or lesions]. Neurologic: [Awake, alert, and oriented X3, CN II-XII intact]. Psychiatric: [Cooperative, appropriate mood and affect]. Assessment and plan Shortness of breath Suspect acute heart failure with unknown ejection fraction I discussed the case with the ED physician and accepted the admission for evaluation of the patient's shortness of breath Chest x-ray reading is pending at this time. I independently interpreted the chest x-ray that showed vascular congestion. Follow-up on final read of chest x-ray BNP elevated at 3540. Cardiac diet with 1500 cc fluid restriction Heart failure pathway Check echocardiogram Cardiology consult N.p.o. after midnight Asymptomatic bradycardia PVCs Cardiology consult Avoid rate controlling agents Elevated bilirubin suspect due to hepatic congestion Check right upper quadrant ultrasound Elevated blood pressure At this time I only have 1 reading I will start the patient on IV hydralazine 10 mg every 4 hours for systolic blood pressure greater than 170 If blood pressure persistently elevated then may need to start a blood pressure medication History of atrial fibrillation Patient noncompliant with anticoagulation so we will hold off for now Alcohol use Patient states that he drinks 3 glasses of wine every day Monitor for signs of withdrawal. DVT prophylaxis: Subcu heparin Past Medical History Past Medical History: No Reported History Past Surgical History: Appendectomy, Orthopedic Surgery, Tonsillectomy Additional Past Surgical History / Comment(s): Torn achilles tendon Smoking Status: Never smoker Past Alcohol Use History: Daily Past Drug Use History: None Reported Medications and Allergies Home Medications Medication Instructions Recorded Confirmed Type Aspirin EC [Ecotrin] 325 mg PO DAILY@1600 09/05/24 09/05/24 History Allergies Allergy/AdvReac Type Severity Reaction Status Date / Time No Known Allergies Allergy Verified 09/05/24 12:56 Physical Exam Osteopathic Statement: *. No significant issues noted on an osteopathic structural exam other than those noted in the History and Physical/Consult. Vitals: Vital Signs Temp Pulse Pulse Resp BP Pulse Ox 09/05/24 11:33 40 L 09/05/24 11:20 97.5 F L 42 L 18 180/72 95 Intake and Output 09/05/24 09/05/24 09/05/24 06:59 14:59 22:59 Other: Weight 104.326 kg Results CBC & Chem 7: 09/05/24 12:17 09/05/24 12:17 Labs: Abnormal Lab Results - Last 24 Hours (Table) 09/05/24 09/05/24 09/05/24 Range/Units 12:17 12:17 12:17 PT 13.0 H (10.0-12.5) sec INR 1.2 H (<1.2) Chloride 109 H (98-107) mmol/L BUN 21 H (9-20) mg/dL Glucose 100 H (74-99) mg/dL Plasma Lactic Acid Jose 2.2 H* (0.7-2.0) mmol/L Total Bilirubin 2.8 H (0.2-1.3) mg/dL
[2024-09-05] MEDS ORDERED: FUROSEMIDE 40 MG TAB PO SCH (16:00)
[2024-09-05] MEDS: FUROSEMIDE 10 MG/ML 4 ML VIAL IV SCH (16:43)
--- NOTE | 2024-09-05 17:02 | US ---
EXAMINATION TYPE: US liver DATE OF EXAM: 09/05/2024 COMPARISON: NONE CLINICAL INDICATION: Male, 79 years old with history of Elevated biliruben; chest pain, elevated bili TECHNIQUE: Grayscale and color Doppler imaging of the right upper quadrant was performed. FINDINGS: EXAM MEASUREMENTS: Liver Length: 18.1 cm Gallbladder Wall: 0.6 cm . Normal less than 0.3 cm. CBD: 0.5 cm Right Kidney: 10.6 x 5.4 x 6.2 cm Pancreas: portions seen appear wnl. No discrete masses Liver: wnl Gallbladder: thickened wall with possible cholecystic gutter fluid seen. Some adjacent fluid may be present. Evidence for sonographic Alaniz's sign: no CBD: wnl Right Kidney: wnl IMPRESSION: 1. Gallbladder wall thickening I was pericholecystic fluid. Correlate for acute cholecystitis. 2. Hepatomegaly [facility], Workstation: [facility], 09/05/2024 5:00 PM
[2024-09-05] MEDS: HEPARIN SODIUM,PORCINE 5,000 UNIT/ML 1 ML VIAL SQ SCH (23:16)
[2024-09-06] MEDS: NITROGLYCERIN OINT 1 INCH/GM PACKET TOPICAL SCH (01:03)
[2024-09-06 06:45] LABS: Basophils % (A) 1 %; Eosinophils # (A) 0.2 k/uL (0-0.7); Eosinophils % (A) 3 %; HCT 47.7 % (39.0-53.0); HGB 16.1 gm/dL (13.0-17.5); Lymphocytes % (A) 28 %; MCHC 33.6 g/dL (31.0-37.0); MCV 98.2 fL (80.0-100.0); Mean Platelet Volume 8.9; Monocytes # (A) 0.7 k/uL (0-1.0); Monocytes % (A) 10 %; Neutrophils # (A) 4.1 k/uL (1.3-7.7); Neutrophils % (A) 57 %; Platelet Count 179 k/uL (150-450); RBC 4.86 m/uL (4.30-5.90); RDW 12.9 % (11.5-15.5); WBC 7.3 k/uL (3.8-10.6)
[2024-09-06 06:56] LABS: African American GFR (CKD) 74 (>60 ml/min/1.73 sqM); Anion Gap 8 mmol/L; Carbon Dioxide 25 mmol/L (22-30); Magnesium 2.2 mg/dL (1.6-2.3); Non-African American GFR(CKD) 64 (>60 ml/min/1.73 sqM); Sodium 141 mmol/L (137-145)
[2024-09-06] MEDS ORDERED: ceFAZolin 1 GM in SODIUM CHLORIDE 0.9% IRRIG BTL 250 ML IRRIGATION PRN (07:00)
[2024-09-06 07:11] LABS: Blood Urea Nitrogen 24 mg/dL (9-20); Potassium 5.2 mmol/L (3.5-5.1)
[2024-09-06 07:12] LABS: Chloride 108 mmol/L (98-107); Glucose 100 mg/dL (74-99)
[2024-09-06] MEDS: SODIUM CHLORIDE 0.9% 1,000 ML IV SCH ×2 (08:47→08:50)
[2024-09-06] MEDS: amLODIPine 10 MG TAB PO SCH (08:52)
[2024-09-06] MEDS: ASPIRIN 81 MG PO SCH (08:52)
[2024-09-06 09:33] LABS: African American GFR (CKD) 76 (>60 ml/min/1.73 sqM); Anion Gap 8 mmol/L; Blood Urea Nitrogen 24 mg/dL (9-20); Calcium 9.3 mg/dL (8.4-10.2); Carbon Dioxide 29 mmol/L (22-30); Chloride 107 mmol/L (98-107); Glucose 104 mg/dL (74-99); Non-African American GFR(CKD) 65 (>60 ml/min/1.73 sqM); Sodium 144 mmol/L (137-145)
[2024-09-06 09:40] LABS: INR 1.2 (<1.2); Prothrombin Time 12.5 sec (10.0-12.5)
[2024-09-06 09:46] LABS: Potassium 4.7 mmol/L (3.5-5.1)
--- NOTE | 2024-09-06 10:31 | P.CRDCN ---
History of Present Illness History of present illness: HISTORY OF PRESENT ILLNESS: This is a 79-year-old male with a past medical history significant for persistent atrial fibrillation and daily alcohol use. Patient used to follow with Dr. Gregory but has not been seen since October 2021. He usually follows with the [facility]. We have been asked to see the patient in consultation for acute pulmonary edema and bigeminy. Patient examined at the bedside in the emergency room. Patient was seen yesterday at the [facility] and it was recommended that he come to the hospital for further evaluation. The patient states he has not had any energy recently. He reports feeling generally fatigued. He states that he can only walk about 10 to 15 feet without feeling short of breath and having to stop for rest. He denies having any chest pain or pressure. Bedside telemetry reveals atrial fibrillation with a heart rate between 3035. The patient does have a history of atrial fibrillation. He was previously on anticoagulation however he was unable to afford Eliquis and apparently was hesitant to take anticoagulation. He states he has been taking a full dose aspirin at home. DIAGNOSTICS: - EKG reveals atrial fibrillation with right bundle branch block. Bigeminy. - Chest xray right basilar infiltrate and small effusion. Mild central venous c ongestion or interstitial pneumonitis in the differential diagnosis. - Laboratory data: WBC 7.3. Hemoglobin 16.1. Platelet count 179. Sodium 144. Potassium 4.7. BUN 24. Creatinine 1.07. Creatinine negative x 2. TSH 1.980. - Current home cardiac medications include aspirin 325 mg daily - Most recent echocardiogram obtained in September 2021 revealed ejection fraction 60 to 65%, mild MR, mild TR, mild pulmonary hypertension REVIEW OF SYSTEMS: At the time of my exam: CONSTITUTIONAL: Denies fever or chills. HEENT: Denies blurred vision, vision changes, or eye pain. Denies hemoptysis CARDIOVASCULAR: Denies chest pain. Denies orthopnea. Denies PND. Denies palpitations RESPIRATORY: Denies shortness of breath. GASTROINTESTINAL: Denies abdominal pain. Denies nausea or vomiting. HEMATOLOGIC: Denies bleeding disorders. GENITOURINARY: Denies any blood in urine. SKIN: Denies pruitis. Denies rash. PHYSICAL EXAM: VITAL SIGNS: Reviewed. GENERAL: Well-developed in no acute distress. HEENT: Head is normocephalic. Pupils are equal, round. Sclerae anicteric. Mucous membranes of the mouth are moist. Neck supple. No JVD or thyromegaly LUNGS: Respirations even and unlabored. Lungs essentially clear to auscultation bilaterally. HEART: Bradycardic. Irregular rate and rhythm. S1 and S2 heard. ABDOMEN: Soft. Nondistended. Nontender. EXTREMITIES: Normal range of motion. No clubbing or cyanosis. Peripheral pulses intact. Trace bilateral lower extremity edema NEUROLOGIC: Awake and alert. ASSESSMENT: Generalized weakness and fatigue Symptomatic bradycardia with chronotropic incompetence and frequent PVCs requiring beta manda therapy Persistent atrial fibrillation Acute heart failure with preserved EF, 60 to 65% in 2020, repeat echo pending Hypertension Daily alcohol use Mild hyperkalemia secondary to hemolyzed specimen, repeat 4.7 PLAN: Obtain 2D echo to assess cardiac structure and function TSH checked and within normal limits Add amlodipine 10 mg daily for optimal blood pressure control Continue IV Lasix 40 mg every 12 hours Daily weights, accurate intake and output, and monitoring of kidney function Patient to undergo pacemaker implantation today with Dr. Gregory Post procedure, patient will need to be initiated on anticoagulation secondary to his persistent atrial fibrillation. Will discontinue aspirin. Patient was previously on Eliquis in the past however this was too expensive. We will have case management recheck co-pay. If Eliquis is not covered, patient will be initiated on Coumadin after pacemaker. Add beta manda post pacemaker due to frequent PVCs Further recommendations pending patient course Nurse practitioner note has been reviewed by physician. Signing provider agrees with the documented findings, assessment, and plan of care documented by POULTRY PINNER as a scribe. Past Medical History Past Medical History: No Reported History Past Surgical History: Appendectomy, Orthopedic Surgery, Tonsillectomy Additional Past Surgical History / Comment(s): Torn achilles tendon Smoking Status: Never smoker Past Alcohol Use History: Daily Past Drug Use History: None Reported Medications and Allergies Home Medications Medication Instructions Recorded Confirmed Type Aspirin EC [Ecotrin] 325 mg PO DAILY@1600 09/05/24 09/05/24 History Apixaban [Eliquis] 5 mg PO BID #60 tab 09/06/24 Rx Allergies Allergy/AdvReac Type Severity Reaction Status Date / Time No Known Allergies Allergy Verified 09/05/24 12:56 Physical Exam Vitals: Vital Signs Temp Pulse Pulse Resp BP Pulse Ox 09/06/24 09:00 35 L 16 152/65 95 09/06/24 08:00 35 L 16 148/70 92 L 09/06/24 06:29 98.1 F 36 L 19 168/72 97 09/06/24 05:38 36 L 18 166/69 96 09/06/24 04:14 36 L 18 154/88 97 09/06/24 03:51 97.8 F 36 L 18 153/91 96 09/06/24 03:18 38 L 187/84 95 09/06/24 03:02 43 L 19 187/80 94 L 09/06/24 01:05 50 L 18 166/75 96 09/05/24 23:13 40 L 18 144/77 96 09/05/24 19:46 39 L 18 161/77 95 09/05/24 18:00 39 L 18 134/78 92 L 09/05/24 17:00 38 L 18 135/110 93 L 09/05/24 16:00 47 L 18 134/93 92 L 09/05/24 15:00 51 L 18 139/88 94 L 09/05/24 14:00 53 L 18 173/71 95 09/05/24 11:33 40 L 09/05/24 11:20 97.5 F L 42 L 18 180/72 95 Results 09/06/24 06:26 09/06/24 09:00 Cardiac Enzymes 09/05/24 09/05/24 09/06/24 Range/Units 12:17 12:17 07:48 AST 29 (17-59) U/L Troponin I 0.031 0.032 (0.000-0.034) ng/mL Coagulation 09/05/24 09/06/24 Range/Units 12:17 09:00 PT 13.0 H 12.5 (10.0-12.5) sec APTT 24.8 (22.0-30.0) sec CBC 09/05/24 09/06/24 Range/Units 12:17 06:26 WBC 7.5 7.3 (3.8-10.6) k/uL RBC 4.94 4.86 (4.30-5.90) m/uL Hgb 16.0 16.1 (13.0-17.5) gm/dL Hct 49.2 47.7 (39.0-53.0) % Plt Count 161 179 (150-450) k/uL Comprehensive Metabolic Panel 09/05/24 09/06/24 09/06/24 Range/Units 12:17 06:26 09:00 Sodium 142 141 144 (137-145) mmol/L Potassium 4.8 5.2 H 4.7 (3.5-5.1) mmol/L Chloride 109 H 108 H 107 (98-107) mmol/L Carbon Dioxide 23 25 29 (22-30) mmol/L BUN 21 H 24 H 24 H (9-20) mg/dL Creatinine 0.96 1.08 1.07 (0.66-1.25) mg/dL Glucose 100 H 100 H 104 H (74-99) mg/dL Calcium 9.0 9.0 9.3 (8.4-10.2) mg/dL AST 29 (17-59) U/L ALT 29 (4-49) U/L Alkaline Phosphatase 54 (38-126) U/L Total Protein 6.7 (6.3-8.2) g/dL Albumin 4.3 (3.5-5.0) g/dL Current Medications Generic Name Dose Route Start Last Admin Trade Name Freq PRN Reason Stop Dose Admin Amlodipine Besylate 10 mg 09/06/24 09:00 09/06/24 08:52 Amlodipine 10 Mg Tab PO 10 mg DAILY ROBBIE Administration Aspirin 81 mg 09/06/24 09:00 09/06/24 08:52 Aspirin 81 Mg PO 81 mg DAILY ROBBIE Administration Furosemide 40 mg 09/05/24 16:30 09/06/24 05:46 Furosemide 10 Mg/Ml 4 Ml Vial IV 40 mg BID@0600,1800 ROBBIE Administration Heparin Sodium (Porcine) 5,000 unit 09/05/24 21:00 09/06/24 08:53 Heparin Sodium,Porcine 5,000 Unit/Ml 1 Ml Vial SQ 5,000 unit Q12HR ROBBIE Administration Sodium Chloride 1,000 mls @ 50 mls/hr 09/06/24 08:45 09/06/24 08:50 Saline 0.9% IV 50 mls/hr .Q20H ROBBIE Administration Sodium Chloride 1,000 mls @ 50 mls/hr 09/06/24 08:45 09/06/24 08:47 Saline 0.9% IV Not Given .Q20H ROBBIE Cefazolin Sodium 1 gm/ Sodium 250 mls @ 250 mls/hr 09/06/24 07:00 Chloride IRRIGATION 09/07/24 06:59 ONCE PRN PRE-OP Cefazolin Sodium 2 gm/ Sodium 50 mls @ 100 mls/hr 09/06/24 07:00 Chloride IVPB 09/07/24 06:59 ONCE PRN Pre-Op 09/06/24 06:26 09/06/24 09:00
[2024-09-06] MEDS: IV FLUID CONTINUATION 1,000 ML IV ONE (12:15)
[2024-09-06] MEDS: LIDOCAINE 1% INJ 10MG/ML (20 ML MDV) SQ ONE ×3 (12:20→12:54)
[2024-09-06] MEDS: MIDAZOLAM 2 MG/2 ML VIAL IVP ONE (12:20)
[2024-09-06] MEDS: fentaNYL (PF) 50 MCG/ML 2 ML AMP IVP ONE (12:20)
[2024-09-06 14:55] VITALS: BMI 31.1
--- NOTE | 2024-09-06 16:00 | CA ---
Transthoracic Echo Report Name: Demetri León Age: 79 Gender: M : 1945 Exam Date: 09/06/2024 09:05 Exam Location: [facility] Ht (in): 72 Wt (lb): 230 Ordering Physician: Sugar Mcdaniel MD Attending/Referring Phys: Diecast Machine Operator Kati Cuellar RDCS Procedure CPT: Indications: shortness of breath, bradycardia, heart failure Cardiac Hx: Technical Quality: Fair Contrast 1: Total Dose (mL): Contrast 2: Total Dose (mL): MEASUREMENTS (Male / Female) Normal Values 2D ECHO LV Diastolic Diameter PLAX 4.8 cm 4.2 - 5.9 / 3.9 - 5.3 cm LV Systolic Diameter PLAX 2.6 cm IVS Diastolic Thickness 1.4 cm 0.6 - 1.0 / 0.6 - 0.9 cm LVPW Diastolic Thickness 1.4 cm 0.6 - 1.0 / 0.6 - 0.9 cm LV Relative Wall Thickness 0.6 RV Internal Dim ED PLAX 3.1 cm LVOT Diameter 2.3 cm LV Diastolic Volume MOD 4C 128.5 cm??? LV Systolic Volume MOD 4C 67.4 cm??? LV Ejection Fraction MOD 4C 47.5 % LV Cardiac Index MOD 4C 943.9 cm???/min???m??? LV Diastolic Length 4C 7.9 cm LV Systolic Length 4C 6.7 cm LA Volume 112.5 cm??? 18 - 58 / 22 - 52 cm??? LA Volume Index 48.3 cm???/m??? 16 - 28 cm???/m??? M-MODE Aortic Root Diameter MM 3.3 cm LA Systolic Diameter MM 4.9 cm LA Ao Ratio MM 1.5 AV Cusp Separation MM 2.3 cm DOPPLER AV Peak Velocity 117.1 cm/s AV Peak Gradient 5.5 mmHg AV Mean Velocity 75.5 cm/s AV Mean Gradient 3.8 mmHg AV Velocity Time Integral 25.0 cm AI Peak Velocity 426.5 cm/s AI Peak Gradient 72.8 mmHg AI Pressure Half Time 1193.8 ms LVOT Peak Velocity 117.3 cm/s LVOT Peak Gradient 5.5 mmHg LVOT Velocity Time Integral 24.7 cm LVOT Stroke Volume 103.2 cm??? LVOT Stroke Volume Index 45.7 ml/m??? LVOT Cardiac Index 1595.8 cm???/min???m??? AV Area Cont Eq vti 4.1 cm??? AV Area Cont Eq pk 4.2 cm??? TR Peak Velocity 318.9 cm/s TR Peak Gradient 40.7 mmHg Right Atrial Pressure 20.0 mmHg Pulmonary Artery Systolic Pressu 60.7 mmHg Right Ventricular Systolic Press 60.7 mmHg FINDINGS Left Ventricle Moderately increased left ventricular wall thickness. Left ventricular cavity size normal. No obvious regional wall motion abnormalities. Left ventricular ejection fraction is estimated at 45-50 %. Right Ventricle Mild right ventricular dilatation. Severe pulmonary hypertension. Right ventricular systolic pressure estimated at 61mm hg. Right Atrium Moderate right atrial dilatation. Left Atrium Severely increased left atrial volume. Mildly increased left atrial area. Mitral Valve Structurally normal mitral valve. Mitral valve thickened. Mild mitral annular calcification. Moderate mitral regurgitation. Centrally directed mitral regurgitation jet. Aortic Valve Trileaflet aortic valve. No aortic stenosis. [id number] aortic regurgitation. Eccentric aortic regurgitation jet directed at the mitral valve. Tricuspid Valve Structurally normal tricuspid valve. Moderate tricuspid regurgitation. Pulmonic Valve Structurally normal pulmonic valve. Pericardium No pericardial effusion. Aorta Normal size aortic root and proximal ascending aorta. CONCLUSIONS Left ventricular ejection fraction 45-50% Moderate increased left ventricular wall thickness Moderate right atrial dilation Moderately dilated left atrium Moderate mitral regurgitation RVSP 60 Mild to moderate aortic regurgitation Moderate tricuspid regurgitation Previewed by: Dr. Chong Gregory DO (Electronically Signed) Final Date: 06 September 2024 15:59
--- NOTE | 2024-09-06 17:04 | P.PCN ---
Description of Procedure: CARDIOLOGY PROCEDURE NOTE Certified Shorthand Reporter: Dr. Chong Gregory Procedure performed: Insertion single chamber permanent pacemaker Site: Left subclavian Indications: Sick Sinus Syndrome, symptomatic bradycardia with HR's in the 30's with no reversible cause Complications: None Blood Loss: Minimal Description of Procedure: After the risks, benefits, and alternatives of the above-mentioned procedure was explained in detail with the patient, informed consent was obtained. The patient was taken to the cardiac catheterization suite where the left subclavian area was sterily prepped and draped in the usual fashion. One percent lidocaine was used to anesthetize the left subclavian area. Twenty milliliters of Isoview 370 contrast was injected into the left antecubital vein to allow for direct visualization of the left subclavian vein under fluoroscopy. A 1.5 inch incision was made utilizing a #15 blade in the left subclavian site. Hemostasis was made complete. Electrocautery along with digital blunt dissection was utilized to dissect to the level of the pectoralis muscle fascia and create a pocket large enough to accommodate the generator. A thin walled micro puncuture needle was used to cannulate the left subclavian vein. A guide-wire was inserted through the needle into the vascular lumen under fluoroscopic guidance. The needle was removed. A venous sheath and dilator were advanced over the guidewire into the vascular lumen under fluoroscopic guidance. The dilator and guidewire were then removed. A right ventricular bipolar lead was inserted into the sheath and advanced under fluoroscopic guidance into the right ventricle under fluoroscopic guidance. Adequate sensing and pacing thresholds were achieved and the lead was screwed into place in the RV apical septum. The sheath was then torn away. The lead collar was advanced and anchored into place utilizing #0 silk suture. The lead was then inserted into the appropriate position into the generator. It then secured with the setscrew provided. The lead and generator were inserted into the pocket with the lead posterior. The subcutaneous tissue was approximated utilizing #2.0 and 3.0 vicryl in an interrupted stitch fashion. The dermal layer was approximated utilizing #4.0 vicryl. The area was cleansed with sterile saline and dried. A sterile 4x4 dr essing was applied and the patient was transferred to the post catheterization holding area in stable and satisfactory condition. The patient tolerated the procedure well. Generator Data Manufacturing Technologist: [employer]tr[employer] Brand: IPG [id number] Aminah S SR MRI Model #: [id number] Serial#: [id number] Right Ventricular Bipolar Lead Data: Type: Active fixation lead Manufacturing Technologist: Skilljar Model #: 5076-58 Serial Number: [id number] Stimulation Thresholds: Right Ventricular bipolar lead pacing and sensing thresholds Pulse Width: 0.4ms Voltage: 0.625 volts Impedance: 969 ohms R-wave sensin.3 mV Parameter Setting: Pacing mode is VVIR Lower rate 60 bpm Upper rate 130 bpm Impressions: 1. Successful implantation of a single chamber permanent pacemaker in the left pectoral site. Plan: 1. Routine post procedure care will be instituted as well as outpatient follow- up surveillance.
[2024-09-06] MEDS ORDERED: ACETAMINOPHEN TAB 325 MG TAB PO PRN (17:05)
--- NOTE | 2024-09-06 17:45 | XR ---
EXAMINATION TYPE: XR chest 1V portable DATE OF EXAM: 09/06/2024 COMPARISON: 09/05/2024 INDICATION: Lead placement check TECHNIQUE: Single frontal view of the chest is obtained. FINDINGS: The heart size is normal. The pulmonary vasculature is normal. Some mild increase in infiltrate as along the right diaphragm. Correlate for atelectasis. Electronically right overlies left chest. Single lead is present directed towards the left cardiac ap ex region. No pneumothorax. IMPRESSION: 1. Mild right lower lobe atelectasis. 2. Single lead electronic device appears typical orientation. [facility], Workstation: [facility], 09/06/2024 5:43 PM
--- NOTE | 2024-09-06 18:03 | P.PN ---
Subjective Progress Note Date: 09/06/24 Hospital course: Patient is a very pleasant 79-year-old male with past medical history of daily alcohol use/abuse and paroxysmal atrial fibrillation. Presented to the hospital on 09/05/2024 secondary to reports of shortness of breath. Patient reported experiencing increased shortness of breath over the past 2 weeks, increased lower extremity edema, and orthopnea. He initially scheduled outpatient appointment with his PCP for evaluation but was instructed that he had to come into the hospital to be evaluated for abnormal heart rhythm and concerns of fluid volume overload. Upon arrival to our facility, patient underwent evaluation in the emergency department. Vital signs upon arrival show blood pressure 180/72, heart rate 42, respiratory rate 18, temp 97.5 F, and SpO2 of 95% on room air. EKG completed showing sinus bradycardia with bigeminy at a reported rate of 53 bpm. Chest x-ray showing right basilar infiltrate and small effusion with mild central venous congestion. Labs completed and reviewed. CBC was unremarkable. Coagulation profile showing elevated PT of 13.0 and INR of 1.2. BMP showing hyperchloremia with chloride of 109 and mild prerenal azotemia with BUN of 21. Blood glucose was 100. Initial lactate was elevated at 2.2. Lipid profile showing elevated total bili of 2.8 otherwise normal findings. Troponin was 0.031 and proBNP was 3540. Liver ultrasound showing gallbladder wall thickening and pericholecystic fluid with hepatomegaly. Patient was admitted under our services with consultation to cardiology. Repeat troponin 0.032. TSH was 1.980. Patient was evaluated by cardiology this morning and scheduled to undergo cardiac pacemaker placement later today. Physical exam: Patient seen and fully evaluated at bedside this morning. He was sitting on the edge of bed and currently denies having any complaints. Patient had significant bradycardia noted on monitor with heart rate of 35 at time of assessment. Cardiology just evaluated and planning to take patient for cardiac pacemaker later today. Discussed with patient and patient's and all questions answer ed at this time. Patient reports feeling tired but otherwise currently denies having any complaints. He reports his shortness of breath has improved since hospitalization and denies having any abdominal pain/discomfort and was nontender to right upper quadrant upon palpation. Vital signs reviewed and stable. General: Nontoxic, no distress and appears stated age. Derm: Skin warm and dry, normal coloration for ethnicity. Head: Atraumatic, normocephalic and symmetric. Eyes: EOM's intact, no lid lag, and anicteric sclera Mouth: no lip lesions, mucus membranes moist Cardiovascular: Bradycardic rate with irregular rhythm. Systolic murmur, positive posterior tibial pulses bilaterally, and cap refill < 2 seconds. Lungs: Respirations even, regular, and unlabored on room air. Lungs CTA bi laterally, no rhonchi, no rales, no wheezing, and no accessory muscle usage. Abdominal: soft, nontender to palpation, no guarding, no appreciable organomegaly Ext: ROM intact. No gross muscle atrophy, 1+ bilateral lower extremity edema, no contractures Neuro: Speech clear, face symmetrical and CN II-XII grossly intact with no noted focal neuro deficits Psych: Alert and oriented to person, place, time, and situation. Appropriate and pleasant affect. Assessment and Plan of Care: Sinus bradycardia with frequent PVCs in bigeminy pattern Generalized weakness, secondary to above Chronic atrial fibrillation with slowed ventricular rate Acute on chronic diastolic heart failure Hypertension -Cardiology consulted, planning to take patient for pacemaker placement later today -Telemetry monitoring -(Trended resulting at 0.031 and 0.032. proBNP was elevated at 3540. -Patient to continue daily medication regimen with amlodipine 10 mg daily and Lasix 40 mg twice daily. -Close monitoring of I's and O's and daily weights. -Echocardiogram to be completed. -[id number] score is 4, recommend anticoagulation but will defer to cardiology pending scheduled pacemaker placement later today. Chronic daily alcohol use/abuse Hyperbilirubinemia Hepatomegaly with gallbladder wall thickening and pericholecystic fluid, rule out acute cholecystitis -Elevated bilirubin suspect due to hepatic congestion -Patient asymptomatic for right upper quadrant pain/discomfort. -Order placed for CIWA scores every 4 hours. Patient reports daily alcohol intake ranges from 3 glasses of wine daily, sometimes more. -Liver ultrasound was completed and reviewed showing hepatomegaly with gallbl adder wall thickening and pericholecystic fluid concerning for acute cholecystitis. -Will consult general surgery for evaluation status post pacemaker placement. Data and imaging reviewed: -Liver ultrasound was completed and reviewed showing hepatomegaly with gallbladder wall thickening and pericholecystic fluid concerning for acute cholecystitis. -Morning labs reviewed. CBC unremarkable. Coagulation profile showing elevated INR of 1.2 otherwise normal findings. BMP showing elevated BUN of 24 otherwise normal findings. Blood glucose 104. Magnesium 2.2. Troponins trended resulting at 0.031 and 0.032. TSH was 1.980. -Vital signs reviewed. Blood pressure 148/70, heart rate 35, respiratory rate 16, temp 98.1 F, and SpO2 of 92% on room air. CODE STATUS: Full code DVT prophylaxis: Heparin Anticipated discharge date: Pending clinical course Anticipated discharge place: Home Patient was seen independently by Nurse Pracitioner. This document was prepared using [employer] dictation software. Please allow for errors in construction representative, while rare they do occur. I reviewed the documentation as provided by the JOSE FRANCISCO above, who is the original author of this note. I agree with the documented assessment and plan, with the following changes: none Objective - Vital Signs Vital signs: Vital Signs Temp 98.1 F 09/06/24 06:29 Pulse 36 L 09/06/24 06:29 Resp 19 09/06/24 06:29 BP 168/72 09/06/24 06:29 Pulse Ox 97 09/06/24 06:29 FiO2 Intake & Output 09/05/24 09/06/24 09/06/24 18:59 06:59 18:59 Weight 104.326 kg - Labs CBC & Chem 7: 09/06/24 06:26 09/06/24 09:00 Labs: Abnormal Lab Results - Last 24 Hours (Table) 09/05/24 09/05/24 09/05/24 Range/Units 12:17 12:17 12:17 PT 13.0 H (10.0-12.5) sec INR 1.2 H (<1.2) Potassium (3.5-5.1) mmol/L Chloride 109 H (98-107) mmol/L BUN 21 H (9-20) mg/dL Glucose 100 H (74-99) mg/dL Plasma Lactic Acid Jose 2.2 H* (0.7-2.0) mmol/L Total Bilirubin 2.8 H (0.2-1.3) mg/dL 09/06/24 Range/Units 06:26 PT (10.0-12.5) sec INR (<1.2) Potassium 5.2 H (3.5-5.1) mmol/L Chloride 108 H (98-107) mmol/L BUN 24 H (9-20) mg/dL Glucose 100 H (74-99) mg/dL Plasma Lactic Acid Jose (0.7-2.0) mmol/L Total Bilirubin (0.2-1.3) mg/dL
[2024-09-07 10:10] LABS: HCT 43.9 % (39.6-50.0); HGB 14.6 g/dL (13.0-17.0); MCH 32.5 pg (27.0-32.0); MCHC 33.3 g/dL (32.0-37.0); MCV 97.8 FL (80.0-97.0); NRBC Per 100 WBC 0 X 10*3/uL (0.00-0.01); Platelet Count 166 X 10*3/uL (140-440); RBC 4.49 X 10*6/uL (4.40-5.60); RDW 12.8 % (11.5-14.5); WBC 6.33 X 10*3/uL (4.50-10.00)
[2024-09-07 10:34] LABS: Magnesium 2.1 mg/dL (1.5-2.4)
--- NOTE | 2024-09-07 10:45 | XR ---
EXAMINATION TYPE: XR chest 1V portable DATE OF EXAM: 09/07/2024 COMPARISON: 09/06/2024 HISTORY: Pacemaker lead TECHNIQUE: Single frontal view of the chest is obtained. FINDINGS: There is a single-lead cardiac pacemaker which appears to be in satisfactory position. There is moder ate cardiomegaly but no pulmonary vascular congestion or pulmonary edema. There is no pleural effusio n or pneumothorax. The infiltrate in the right base seen on the prior study has cleared in the interval IMPRESSION: 1. Single lead cardiac pacemaker which appears to be in satisfactory position. 2.Moderate cardiomegal y without overt CHF. 3. Right lower lobe infiltrate seen on the prior study has cleared in the interval. [facility], , 09/07/2024 10:43 AM
--- NOTE | 2024-09-07 11:45 | P.CON ---
Consult Note - . Consult date: 09/07/24 Assessment/Plan:: This is an 79-year-old male who presents to the [facility] emergency department stating that lately has been becoming weaker and weaker and someone told him that his pulse was irregular and he needed to go to the emergency department. Patient denies any chest pain or palpitations. Patient denies shortness of breath. Patient denies any headache patient has numbness weakness. Patient has abdominal pain patient has nausea vomiting diarrhea. During this admission, patient had a pacemaker placed for symptomatic bradycardia. Patient is a daily wine drinker for 30 years. He had an ultrasound done which showed GB wall thickening and PCC Fluid. He denies RUQ and epigastric pain. Denies nausea. He does not have a leukocytosis. Review of Systems ROS Statement: Those systems with pertinent positive or pertinent negative responses have been documented in the HPI. Past Medical History Past Medical History: No Reported History Past Surgical History: Appendectomy, Orthopedic Surgery, Tonsillectomy Additional Past Surgical History / Comment(s): Torn achilles tendon Smoking Status: Never smoker Past Alcohol Use History: Daily Past Drug Use History: None Reported General Exam - General Exam Comments Initial Comments: GENERAL: Patient is well-developed and well-nourished. Patient is nontoxic and well- hydrated and is in mild distress. ENT: Neck is soft and supple. No significant lymphadenopathy is noted. Oropharynx is clear. Moist mucous membranes. Neck has full range of motion without eliciting any pain. EYES: The sclera were anicteric and conjunctiva were pink and moist. Extraocular movements were intact and pupils were equal round and reactive to light. Eyelids were unremarkable. PULMONARY: Unlabored respirations. Good breath sounds bilaterally. No audible rales rhonchi or wheezing was noted. CARDIOVASCULAR: There is a regular rate and rhythm without any murmurs gallops or rubs. ABDOMEN: Soft and nontender with normal bowel sounds. SKIN: Skin is clear with no lesions or rashes and otherwise unremarkable. NEUROLOGIC: Patient is alert and oriented x3. Cranial nerves II through XII are grossly intact. Motor and sensory are also intact. Normal speech, volume and content. Symmetrical smile. MUSCULOSKELETAL: Normal extremities with adequate strength and full range of motion. 1+ edema bilaterally LYMPHATICS: No significant lymphadenopathy is noted PSYCHIATRIC: Normal psychiatric evaluation. Limitations: physical limitation 79 year old male evaluated to rule out cholecystitis -US findings likely related to patients history of daily drinking for 30 years. Patient does not have any pain or signs of cholecystitis. -Patient ok for diet from General Surgery standpoint -No acute surgical intervention planned -Cardiology [place] [facility] [phone]
[2024-09-07 12:02] LABS: ALT 22 U/L (10-49); AST 20 U/L (14-35); Albumin 3.9 g/dL (3.8-4.9); Albumin/Globulin Ratio 1.86 Ratio (1.60-3.17); Alkaline Phosphatase 62 U/L (41-126); Blood Urea Nitrogen 21.7 mg/dL (9.0-27.0); Calcium 8.8 mg/dL (8.7-10.3); Carbon Dioxide 24.5 mmol/L (21.6-31.8); Chloride 107 mmol/L (96-109); Globulin 2.1 g/dL (1.6-3.3); Glucose 104 mg/dL (70-110); Sodium 144 mmol/L (135-145); Total Bilirubin 2.3 mg/dL (0.3-1.2)
[2024-09-07] MEDS: ceFAZolin 1,000 MG VIAL IVPB ONE (13:48)
[2024-09-07] MEDS: MIDAZOLAM 2 MG/2 ML VIAL IVP ONE ×2 (13:50→14:01)
[2024-09-07] MEDS: fentaNYL (PF) 50 MCG/ML 2 ML AMP IVP ONE ×2 (13:51→14:04)
[2024-09-07] MEDS: SODIUM CHLORIDE 0.9% 1,000 ML IV ONE (13:51)
[2024-09-07] MEDS: ceFAZolin 2 GM in SODIUM CHLORIDE 0.9% 500 ML 500 ML IRRIGATION ONE (13:55)
[2024-09-07] MEDS: LIDOCAINE 1% INJ 10MG/ML (20 ML MDV) SQ ONE (14:04)
[2024-09-07] MEDS ORDERED: ACETAMINOPHEN TAB 325 MG TAB PO PRN (14:51)
--- NOTE | 2024-09-07 14:52 | P.PCN ---
Description of Procedure: CARDIOLOGY PROCEDURE NOTE Blasting Miner: Dr. Chong Gregory Procedure performed: Revision of RV single chamber permanent pacemaker lead Site: Left subclavian Indications: Sick Sinus Syndrome, symptomatic bradycardia with HR's in the 30's with no reversible cause, RV lead malfunction Complications: None Blood Loss: Minimal Description of Procedure: After the risks, benefits, and alternatives of the above-mentioned procedure was explained in detail with the patient, informed consent was obtained. The patient was taken to the cardiac catheterization suite where the left subclavian area was sterily prepped and draped in the usual fashion. One percent lidocaine was used to anesthetize the left subclavian area. Twenty milliliters of Isoview 370 contrast was injected into the left antecubital vein to allow for direct visualization of the left subclavian vein under fluoroscopy. The prior incision was opened with scissors and scalpel with sutures cut, exposing the RV lead and generator. The lead was unconnected and then repositioned to the RV apex and screwed in. Adequate sensing and pacing thresholds were achieved. The lead collar was advanced and anchored into place utilizing #0 silk suture. The lead was then inserted into the appropriate position into the generator. It then secured with the setscrew provided. The lead and generator were inserted into the pocket with the lead posterior. The subcutaneous tissue was approximated utilizing #2.0 and 3.0 vicryl in an interrupted stitch fashion. The dermal layer was approximated utilizing #4.0 vicryl. The area was cleansed with sterile saline and dried. A sterile 4x4 dressing was applied and the patient was transferred to the post catheterization holding area in stable and satisfactory condition. The patient tolerated the procedure well. Generator Data Switchboard Wire Worker Helper: [employer] Brand: [id number] [id number] [place] S SR MRI Model #: [id number] Serial#: [id number] Right Ventricular Bipolar Lead Data: Type: Active fixation lead Switchboard Wire Worker Helper: [employer]Motostrano Model #: 5076-58 Serial Number: [id number] Stimulation Thresholds: Right Ventricular bipolar lead pacing and sensing thresholds Pulse Width: 0.4ms Voltage: 0.5 volts Impedance: 551 ohms R-wave sensin.0 mV Parameter Setting: Pacing mode is VVIR Lower rate 60 bpm Upper rate 130 bpm Impressions: 1. Successful RV lead revision of a single chamber permanent pacemaker in the left pectoral site. Plan: 1. Routine post procedure care will be instituted as well as outpatient follow- up surveillance.
--- NOTE | 2024-09-07 16:06 | P.PN ---
Subjective Progress Note Date: 09/07/24 Hospital course: Patient is a very pleasant 79-year-old male with past medical history of daily alcohol use/abuse and paroxysmal atrial fibrillation. Presented to the hospital on 09/05/2024 secondary to reports of shortness of breath. Patient reported experiencing increased shortness of breath over the past 2 weeks, increased lower extremity edema, and orthopnea. He initially scheduled outpatient appointment with his PCP for evaluation but was instructed that he had to come into the hospital to be evaluated for abnormal heart rhythm and concerns of fluid volume overload. Upon arrival to our facility, patient underwent evaluation in the emergency department. Vital signs upon arrival show blood pressure 180/72, heart rate 42, respiratory rate 18, temp 97.5 F, and SpO2 of 95% on room air. EKG completed showing sinus bradycardia with bigeminy at a reported rate of 53 bpm. Chest x-ray showing right basilar infiltrate and small effusion with mild central venous congestion. Labs completed and reviewed. CBC was unremarkable. Coagulation profile showing elevated PT of 13.0 and INR of 1.2. BMP showing hyperchloremia with chloride of 109 and mild prerenal azotemia with BUN of 21. Blood glucose was 100. Initial lactate was elevated at 2.2. Lipid profile showing elevated total bili of 2.8 otherwise normal findings. Troponin was 0.031 and proBNP was 3540. Liver ultrasound showing gallbladder wall thickening and pericholecystic fluid with hepatomegaly. Patient was admitted under our services with consultation to cardiology. Repeat troponin 0.032. TSH was 1.980. Patient was evaluated by cardiology this morning and scheduled to undergo cardiac pacemaker placement later today. Physical exam: Patient seen and fully evaluated at bedside this morning. Discussed with patient that pacemaker was noted to not be capturing at this time. Discussed with patient and that we will need to repeat chest x-ray to ensure that pacemaker wire/lead was not dislodged during the night. Patient currently asymptomatic bradycardia and denies having any headache, lightheadedness, dizziness, chest pain, palpitations, shortness of breath, or any other complaints at this time. Vital signs reviewed and stable. General: Nontoxic, no distress and appears stated age. Derm: Skin warm and dry, normal coloration for ethnicity. Head: Atraumatic, normocephalic and symmetric. Eyes: EOM's intact, no lid lag, and anicteric sclera Mouth: no lip lesions, mucus membranes moist Cardiovascular: Bradycardic rate with irregular rhythm. Systolic murmur, positive posterior tibial pulses bilaterally, and cap refill < 2 seconds. Lungs: Respirations even, regular, and unlabored on room air. Lungs CTA b ilaterally, no rhonchi, no rales, no wheezing, and no accessory muscle usage. Abdominal: soft, nontender to palpation, no guarding, no appreciable organomegaly Ext: ROM intact. No gross muscle atrophy, 1+ bilateral lower extremity edema, no contractures Neuro: Speech clear, face symmetrical and CN II-XII grossly intact with no noted focal neuro deficits Psych: Alert and oriented to person, place, time, and situation. Appropriate and pleasant affect. Assessment and Plan of Care: Sinus bradycardia with frequent PVCs in bigeminy pattern Generalized weakness, secondary to above Chronic atrial fibrillation with slowed ventricular rate Acute on chronic diastolic heart failure Hypertension -Cardiology consulted, took patient to Distribution Field Technician for permanent pacemaker placement on 09/06/2024. -Received notification from RN 8:18 AM that pacemaker not capturing. Went to bedside to assess, patient bradycardic but currently asymptomatic. Pacemaker interrogation was completed. Order placed for stat chest x-ray to confirm pacemaker lead/wire placement and resistance welder was notified. -Telemetry monitoring -Trended resulting at 0.031 and 0.032. proBNP was elevated at 3540. -TSH normal findings at 1.980. -Patient to continue daily medication regimen with amlodipine 10 mg daily and Lasix 40 mg twice daily. -Close monitoring of I's and O's and daily weights. -Echocardiogram revealing slightly reduced EF of 45 to 50% with moderate increased left ventricular wall thickness, moderate right atrial dilation, mild left atrium dilation, moderate mitral regurgitation, and moderate aortic and tricuspid regurgitation. -[id number] score is 4, recommend anticoagulation but will defer to cardiology pending scheduled pacemaker placement later today. Chronic daily alcohol use/abuse Hyperbilirubinemia Hepatomegaly with gallbladder wall thickening and pericholecystic fluid, rule out acute cholecystitis -Elevated bilirubin suspect due to hepatic congestion -Patient asymptomatic for right upper quadrant pain/discomfort. -Order placed for CIWA scores every 4 hours. Patient reports daily alcohol intake ranges from 3 glasses of wine daily, sometimes more. -Liver ultrasound was completed and reviewed showing hepatomegaly with gallbladder wall thickening and pericholecystic fluid concerning for acute cholecystitis. -General Surgery consulted. Hyperbilirubinemia and findings concerning for acute cholecystitis. Patient remains asymptomatic to right upper quadrant or ep igastric pain. Data and imaging reviewed: -Morning labs reviewed. CBC showing mild macrocytosis with MCV of 97.8 otherwise normal findings. BMP unremarkable. Blood glucose 104. Magnesium 2.1. Liver profile showing hyperbilirubinemia with bilirubin of 2.3 otherwise normal findings. TSH also normal findings at 1.980. -Vital signs reviewed. Blood pressure 147/76, heart rate 64, respiratory rate 17, temp 97.4 F, and SpO2 of 94% on room air. -Echocardiogram revealing slightly reduced EF of 45 to 50% with moderate increased left ventricular wall thickness, moderate right atrial dilation, mild left atrium dilation, moderate mitral regurgitation, and moderate aortic and tricuspid regurgitation. CODE STATUS: Full code DVT prophylaxis: Heparin Anticipated discharge date: Pending clinical course Anticipated discharge place: Home Patient was seen independently by Nurse Pracitioner. This document was prepared using [email or web address] dictation software. Please allow for errors in picker / packer, while rare they do occur. I reviewed the documentation as provided by the JOSE FRANCISCO above, who is the original author of this note. I agree with the documented assessment and plan, with the following changes: none. . Objective - Vital Signs Vital signs: Vital Signs Temp 97.4 F L 09/07/24 07:47 Pulse 64 09/07/24 07:47 Resp 17 09/07/24 07:47 BP 147/76 09/07/24 07:47 Pulse Ox 94 L 09/07/24 07:47 FiO2 Intake & Output 09/06/24 09/07/24 09/07/24 18:59 06:59 18:59 Intake Total 318 118 Balance 318 118 Weight 104.326 kg Intake: IV 200 Oral 118 118 Other: Voiding Method Toilet - Labs CBC & Chem 7: 09/07/24 05:22 09/07/24 05:22 Labs: Abnormal Lab Results - Last 24 Hours (Table) 09/06/24 09/06/24 Range/Units 09:00 09:00 INR 1.2 H (<1.2) BUN 24 H (9-20) mg/dL Glucose 104 H (74-99) mg/dL
[2024-09-07] MEDS: ceFAZolin 1,000 MG in SODIUM CHLORIDE 0.9% IRRIG BTL 250 ML IRRIGATION ONE (16:12)
--- NOTE | 2024-09-07 16:57 | XR ---
EXAMINATION TYPE: XR chest 1V portable DATE OF EXAM: 09/07/2024 4:32 PM CLINICAL INDICATION: Male, 79 years old with history of Lead placement check; [facility] COMPARISON: Chest radiographs from 09/07/2024 TECHNIQUE: XR chest 1V portable Frontal view of the chest. FINDINGS: Lungs/Pleura: There is no evidence of pleural effusion, focal consolidation, or pneumothorax. Pulmonary vascularity: Unremarkable. Heart/mediastinum: Cardiomediastinal silhouette is unremarkable. Single-lead cardiac conduction devic e overlying the left hemithorax with lead projecting over the right ventricle. Musculoskeletal: No acute osseous pathology. Other findings: None IMPRESSION: 1. Left single-lead cardiac conduction device with leads terminating in the right ventricle. 2. No acute cardiopulmonary disease/process. [facility], , 09/07/2024 4:54 PM
--- NOTE | 2024-09-08 04:50 | P.PN ---
Progress Note - Text Progress Note Date: 09/08/24 TANIA. Patient denies abdominal pain. Tolerating diet VSS General-NAD Abdomen-soft, NTND 79 year old male evaluated to rule out cholecystitis -US findings likely related to patients history of daily drinking for 30 years. Patient does not have any pain or signs of cholecystitis. -Patient ok for diet from General Surgery standpoint -No acute surgical intervention planned -Cardiology recs Alvaro [facility] [phone]
[2024-09-08 09:47] LABS: Basophils # (A) 0.06 X 10*3/uL (0.00-0.10); Eosinophils # (A) 0.27 X 10*3/uL (0.04-0.35); Eosinophils % (A) 4.3 %; HCT 42.9 % (39.6-50.0); HGB 14.2 g/dL (13.0-17.0); Lymphocytes # (A) 1.77 X 10*3/uL (0.90-5.00); Lymphocytes % (A) 28.3 %; MCH 32.6 pg (27.0-32.0); MCHC 33.1 g/dL (32.0-37.0); MCV 98.6 FL (80.0-97.0); Mean Platelet Volume 10.4 FL (9.5-12.2); Monocytes # (A) 1.18 X 10*3/uL (0.20-1.00); Monocytes % (A) 18.9 %; NRBC Per 100 WBC 0 X 10*3/uL (0.00-0.01); Neutrophils # (A) 2.95 X 10*3/uL (1.80-7.70); Neutrophils % (A) 47.2 %; Platelet Count 165 X 10*3/uL (140-440); RBC 4.35 X 10*6/uL (4.40-5.60); RDW 12.7 % (11.5-14.5); WBC 6.25 X 10*3/uL (4.50-10.00)
[2024-09-08 10:00] LABS: Blood Urea Nitrogen 18.4 mg/dL (9.0-27.0); Glucose 103 mg/dL (70-110)
[2024-09-08 10:01] LABS: ALT 19 U/L (10-49); AST 22 U/L (14-35); Albumin 3.8 g/dL (3.8-4.9); Alkaline Phosphatase 60 U/L (41-126); Bilirubin, Conjugated 0.64 mg/dL (0.20-0.40); Bilirubin,Unconjugated 1.36 mg/dL (0.20-1.00); Calcium 8.6 mg/dL (8.7-10.3); Carbon Dioxide 25.4 mmol/L (21.6-31.8); Chloride 105 mmol/L (96-109); Potassium 3.6 mmol/L (3.5-5.5); Sodium 142 mmol/L (135-145); Total Protein 5.8 g/dL (6.2-8.2)
[2024-09-08] MEDS ORDERED: LOSARTAN 25 MG TAB PO SCH (13:45)
[2024-09-08] MEDS: LOSARTAN 50 MG TAB PO SCH (14:24)
--- NOTE | 2024-09-08 15:15 | P.PN ---
Subjective Progress Note Date: 09/08/24 Hospital course: Patient is a very pleasant 79-year-old male with past medical history of daily alcohol use/abuse and paroxysmal atrial fibrillation. Presented to the hospital on 09/05/2024 secondary to reports of shortness of breath. Patient reported experiencing increased shortness of breath over the past 2 weeks, increased lower extremity edema, and orthopnea. He initially scheduled outpatient appointment with his PCP for evaluation but was instructed that he had to come into the hospital to be evaluated for abnormal heart rhythm and concerns of fluid volume overload. Upon arrival to our facility, patient underwent evaluation in the emergency department. Vital signs upon arrival show blood pressure 180/72, heart rate 42, respiratory rate 18, temp 97.5 F, and SpO2 of 95% on room air. EKG completed showing sinus bradycardia with bigeminy at a reported rate of 53 bpm. Chest x-ray showing right basilar infiltrate and small effusion with mild central venous congestion. Labs completed and reviewed. CBC was unremarkable. Coagulation profile showing elevated PT of 13.0 and INR of 1.2. BMP showing hyperchloremia with chloride of 109 and mild prerenal azotemia with BUN of 21. Blood glucose was 100. Initial lactate was elevated at 2.2. Lipid profile showing elevated total bili of 2.8 otherwise normal findings. Troponin was 0.031 and proBNP was 3540. Liver ultrasound showing gallbladder wall thickening and pericholecystic fluid with hepatomegaly. Patient was admitted under our services with consultation to cardiology. Repeat troponin 0.032. TSH was 1.980. Patient was evaluated by cardiology this morning and scheduled to undergo cardiac pacemaker placement later today. Physical exam: Patient seen and fully evaluated at bedside this morning. Patient ambulating in [place]cal[place], appears slightly anxious. Patient was asked if he would like something for his anxiety and declined Ativan/Xanax at this time. Patient does have history of daily alcohol use, concerns that anxiety may be underlying signs of withdrawal. Discussed this with patient and he again denied wanting any medications at this time. He denies having any chest pain/discomfort, shortness of breath, or any other complaints at this time. Vital signs reviewed and stable. General: Nontoxic, no distress and appears stated age. Derm: Skin warm and dry, normal coloration for ethnicity. Head: Atraumatic, normocephalic and symmetric. Eyes: EOM's intact, no lid lag, and anicteric sclera Mouth: no lip lesions, mucus membranes moist Cardiovascular: Bradycardic rate with irregular rhythm. Systolic murmur, positive posterior tibial pulses bilaterally, and cap refill < 2 seconds. Lungs: Respirations even, regular, and unlabored on room air. Lungs CTA bilaterally, no rhonchi, no rales, no wheezing, and no accessory muscle usage. Abdominal: soft, nontender to palpation, no guarding, no appreciable organomega ly Ext: ROM intact. No gross muscle atrophy, 1+ bilateral lower extremity edema, no contractures Neuro: Speech clear, face symmetrical and CN II-XII grossly intact with no noted focal neuro deficits Psych: Alert and oriented to person, place, time, and situation. Appropriate and pleasant affect. Assessment and Plan of Care: Sinus bradycardia with frequent PVCs in bigeminy pattern Generalized weakness, secondary to above Chronic atrial fibrillation with slowed ventricular rate Acute on chronic diastolic heart failure Hypertension -Cardiology following, took patient to Astronautical Engineer for permanent pacemaker placeme nt on 09/06/2024 and pacemaker revision on 09/07/2024. -Follow-up on pacemaker interrogation report -Telemetry monitoring -Patient to continue daily medication regimen with amlodipine 10 mg daily and Lasix 40 mg twice daily. -Close monitoring of I's and O's and daily weights. -Echocardiogram revealing slightly reduced EF of 45 to 50% with moderate increased left ventricular wall thickness, moderate right atrial dilation, mild left atrium dilation, moderate mitral regurgitation, and moderate aortic and tricuspid regurgitation. -[id number] score is 4, recommend anticoagulation but will defer to cardiology pending scheduled pacemaker placement later today. Chronic daily alcohol use/abuse Hyperbilirubinemia Hepatomegaly with gallbladder wall thickening and pericholecystic fluid, rule out acute cholecystitis -Elevated bilirubin suspect due to hepatic congestion -Patient asymptomatic for right upper quadrant pain/discomfort. -Order placed for CIWA scores every 4 hours. Patient reports daily alcohol intake ranges from 3 glasses of wine daily, sometimes more. -Liver ultrasound was completed and reviewed showing hepatomegaly with gallbladder wall thickening and pericholecystic fluid concerning for acute cholecystitis. -General Surgery consulted. Hyperbilirubinemia and findings concerning for acute cholecystitis. Patient remains asymptomatic to right upper quadrant or epigastric pain. Data and imaging reviewed: -Morning labs reviewed. CBC showing no significant abnormalities. BMP unremarkable. Blood glucose 103. Liver profile showing hyperbilirubinemia with total bili of 2.0, conjugated bilirubin of 0.64, and unconjugated bilirubin of 1.36. -Vital signs reviewed. Blood pressure 151/79, heart rate 60, respiratory rate 17, temp 97.9 F, and SpO2 of 94% on room air. -Echocardiogram revealing slightly reduced EF of 45 to 50% with moderate increased left ventricular wall thickness, moderate right atrial dilation, mild left atrium dilation, moderate mitral regurgitation, and moderate aortic and tricuspid regurgitation. CODE STATUS: Full code DVT prophylaxis: Heparin Anticipated discharge date: Likely within the next [address]: Home Patient was seen independently by Nurse Pracitioner. This document was prepared using [employer] dictation software. Please allow for errors in bagman/woman, while rare they do occur. I reviewed the documentation as provided by the JOSE FRANCISCO above, who is the original author of this note. I agree with the documented assessment and plan, with the following changes: none. Objective - Vital Signs Vital signs: Vital Signs Temp 97.9 F 09/08/24 06:39 Pulse 60 09/08/24 06:39 Resp 17 09/08/24 06:39 BP 151/79 09/08/24 06:39 Pulse Ox 94 L 09/08/24 06:39 FiO2 Intake & Output 09/07/24 09/08/24 09/08/24 18:59 06:59 18:59 Intake Total 504 Balance 504 Weight 94.3 kg Intake: IV 150 Oral 354 Other: Voiding Method Toilet Toilet - Labs CBC & Chem 7: 09/08/24 03:38 09/08/24 03:38 Labs: Abnormal Lab Results - Last 24 Hours (Table) 09/07/24 09/07/24 Range/Units 05:22 05:22 MCV 97.8 H (80.0-97.0) FL MCH 32.5 H (27.0-32.0) pg Anion Gap 12.50 H (4.00-12.00) mmol/L BUN/Creatinine Ratio 21.70 H (12.00-20.00) Ratio Total Bilirubin 2.3 H (0.3-1.2) mg/dL Total Protein 6.0 L (6.2-8.2) g/dL
--- NOTE | 2024-09-09 00:25 | P.PN ---
Subjective Progress Note Date: 09/08/24 HISTORY OF PRESENT ILLNESS: This is a 79-year-old male with a past medical history significant for pers istent atrial fibrillation and daily alcohol use. Patient used to follow with Dr. Gregory but has not been seen since October 2021. He usually follows with the [facility]. We have been asked to see the patient in consultation for acute pulmonary edema and bigeminy. Patient examined at the bedside in the emergency room. Patient was seen yesterday at the [facility] and it was recommended that he come to the hospital for further evaluation. The patient states he has not had any energy recently. He reports feeling generally fatigued. He states that he can only walk about 10 to 15 feet without feeling short of breath and having to stop for rest. He denies having any chest pain or pressure. Bedside telemetry reveals atrial fibrillation with a heart rate between 3035. The patient does have a history of atrial fibrillation. He was previously on anticoagulation however he was unable to afford Eliquis and apparently was hesitant to take anticoagulation. He states he has been taking a full dose aspirin at home. DIAGNOSTICS: - EKG reveals atrial fibrillation with right bundle branch block. Bigeminy. - Chest xray right basilar infiltrate and small effusion. Mild central venous congestion or interstitial pneumonitis in the differential diagnosis. - Laboratory data: WBC 7.3. Hemoglobin 16.1. Platelet count 179. Sodium 144. Potassium 4.7. BUN 24. Creatinine 1.07. Creatinine negative x 2. TSH 1.980. - Current home cardiac medications include aspirin 325 mg daily - Most recent echocardiogram obtained in September 2021 revealed ejection fraction 60 to 65%, mild MR, mild TR, mild pulmonary hypertension Progress note 09/08/2024 Patient underwent PPM implantation by Dr. Gregory on 09/06/2024. On interrogation of device on 09/07/2024 it was noticed that pacemaker was not appropriately capturing and patient was not bradycardic rhythm. Chest x-ray imaging showed displaced RV lead. Patient went for revision of RV lead with repositioning with Dr. Gregory on 09/07/2024. Repeat chest x-ray shows appropriate positioning of the RV lead in the RV apex. On today, telemetry shows appropriate sensing and capturing. Await official device interrogation by the [employer] rep. PHYSICAL EXAM: VITAL SIGNS: Reviewed. GENERAL: Well-developed in no acute distress. HEENT: Head is normocephalic. Pupils are equal, round. Sclerae anicteric. Mucous membranes of the mouth are moist. Neck supple. No JVD or thyromegaly LUNGS: Respirations even and unlabored. Lungs essentially clear to auscultation bilaterally. HEART: Bradycardic. Irregular rate and rhythm. S1 and S2 heard. ABDOMEN: Soft. Nondistended. Nontender. EXTREMITIES: Normal range of motion. No clubbing or cyanosis. Peripheral pulses intact. Trace bilateral lower extremity edema NEUROLOGIC: Awake and alert. ASSESSMENT: Generalized weakness and fatigue Symptomatic bradycardia with chronotropic incompetence and frequent PVCs requiring beta manda therapy Persistent atrial fibrillation Acute heart failure with preserved EF, 60 to 65% in 2020, repeat echo pending Hypertension Daily alcohol use Mild hyperkalemia secondary to hemolyzed specimen, repeat 4.7 PLAN: Continue IV Lasix 40 mg twice daily. Discontinue Lasix tomorrow. Start Bumex 1 mg p.o. daily to go home with Start losartan 50 mg daily. Reduce amlodipine from 10 mg to 5 mg daily because of lower extremity edema. Add metoprlol XL 25 mg for PVC Resume eliquis 5mg BID. If expensive consider pradaxa v/s warfarin Follow-up with [employer] rep tomorrow for device interrogation. Objective - Vital Signs Vital signs: Vital Signs Temp 97.8 F 09/08/24 18:18 Pulse 66 09/08/24 18:18 Resp 17 09/08/24 18:18 BP 151/75 09/08/24 18:18 Pulse Ox 93 L 09/08/24 18:18 FiO2 Intake & Output 09/08/24 09/08/24 09/09/24 06:59 18:59 06:59 Intake Total 1270 Output Total 400 900 Balance 870 -900 Weight 94.3 kg Intake: Oral 1270 Output: Urine 400 900 Other: Voiding Method Toilet Toilet # Voids 3 - Labs CBC & Chem 7: 09/08/24 03:38 09/08/24 03:38 Labs: Abnormal Lab Results - Last 24 Hours (Table) 09/08/24 09/08/24 Range/Units 03:38 03:38 RBC 4.35 L (4.40-5.60) X 10*6/uL MCV 98.6 H (80.0-97.0) FL MCH 32.6 H (27.0-32.0) pg Monocytes # 1.18 H (0.20-1.00) X 10*3/uL Calcium 8.6 L (8.7-10.3) mg/dL Total Bilirubin 2.0 H (0.3-1.2) mg/dL Conjugated Bilirubin 0.64 H (0.20-0.40) mg/dL Unconjugated Bilirubin 1.36 H (0.20-1.00) mg/dL Total Protein 5.8 L (6.2-8.2) g/dL
[2024-09-09 01:28] VITALS: RESP 16
[2024-09-09] MEDS: APIXABAN 5 MG TAB PO SCH (08:24)
[2024-09-09] MEDS: METOPROLOL SUCCINATE (ER) 25 MG TAB.ER.24H PO SCH (08:24)
[2024-09-09] MEDS: amLODIPine 5 MG TAB PO SCH (08:24)
[2024-09-09] MEDS: BUMETANIDE 1 MG TAB PO SCH (08:24)
[2024-09-09 08:38] LABS: HCT 44.6 % (39.6-50.0); HGB 14.7 g/dL (13.0-17.0); MCH 31.7 pg (27.0-32.0); MCV 96.3 FL (80.0-97.0); Mean Platelet Volume 10.3 FL (9.5-12.2); NRBC Per 100 WBC 0 X 10*3/uL (0.00-0.01); Platelet Count 172 X 10*3/uL (140-440); RBC 4.63 X 10*6/uL (4.40-5.60); RDW 12.5 % (11.5-14.5); WBC 6.15 X 10*3/uL (4.50-10.00)
[2024-09-09 08:47] VITALS: BP 145/73; PULSE 60; TEMP 97.8
[2024-09-09 08:56] LABS: Magnesium 2.1 mg/dL (1.5-2.4)
--- NOTE | 2024-09-09 10:04 | XR ---
EXAMINATION TYPE: XR chest 2V DATE OF EXAM: 09/09/2024 9:43 AM CLINICAL INDICATION: Male, 79 years old with history of pacermaker lead placement; [facility] COMPARISON: 09/07/2024 TECHNIQUE: XR chest 2V Frontal view of the chest. FINDINGS: Lungs/Pleura: There is no evidence of pleural effusion, focal consolidation, or pneumothorax. Pulmonary vascularity: Unremarkable. Heart/mediastinum: Cardiomediastinal silhouette is unremarkable. Single-lead cardiac conduction devic e overlying the left hemithorax with lead projecting over the right ventricle. Musculoskeletal: No acute osseous pathology. IMPRESSION: No acute cardiopulmonary disease/process. [facility], , 09/09/2024 10:01 AM
[2024-09-09 10:57] LABS: ALT 20 U/L (10-49); AST 22 U/L (14-35); Albumin 3.7 g/dL (3.8-4.9); Albumin/Globulin Ratio 1.76 Ratio (1.60-3.17); Alkaline Phosphatase 58 U/L (41-126); Blood Urea Nitrogen 22.8 mg/dL (9.0-27.0); Calcium 8.7 mg/dL (8.7-10.3); Carbon Dioxide 24.5 mmol/L (21.6-31.8); Chloride 105 mmol/L (96-109); Globulin 2.1 g/dL (1.6-3.3); Glucose 112 mg/dL (70-110); Potassium 3.6 mmol/L (3.5-5.5); Sodium 143 mmol/L (135-145); Total Bilirubin 1.9 mg/dL (0.3-1.2); Total Protein 5.8 g/dL (6.2-8.2)
--- NOTE | 2024-09-09 11:05 | P.PN ---
Subjective Progress Note Date: 09/09/24 Principal diagnosis: HPI: [Given had a permanent single-chamber pacemaker placed. There was dislodgment of the ventricular lead and this was again revised by Dr. Gregory. His device was checked yesterday the threshold and sensitivities are excellent. He is doing well chest x-ray revealed good position of the lead. Patient can be discharged today and follow-up with Dr. Virk in 1 week. His vitals are stable no JVD S1-S2 heard normally pacemaker site is clean and dry lungs are clear abdomen and lower EXTR exam otherwise is unremarkable]. PHYSICIAL EXAM: []. IMPRESSION: 1. [Single-chamber permanent pacemaker for significant bradycardia]. 2. []. 3. []. 4. []. 5. []. RECOMMENDATIONS: [X-ray and device check has been good he can be discharged today and see Dr. Lira in 1 week]. Objective - Vital Signs Vital signs: Vital Signs Temp 97.8 F 09/09/24 08:00 Pulse 60 09/09/24 08:00 Resp 16 09/09/24 08:00 BP 145/73 09/09/24 08:00 Pulse Ox 98 09/09/24 08:00 FiO2 Intake & Output 09/08/24 09/09/24 09/09/24 18:59 06:59 18:59 Intake Total 1270 118 Output Total 400 1350 Balance 870 -1350 118 Weight 92.6 kg Intake: Oral 1270 118 Output: Urine 400 1350 Other: Voiding Method Toilet Toilet # Voids 3 - Labs CBC & Chem 7: 09/09/24 04:18 09/09/24 04:18 Labs: Abnormal Lab Results - Last 24 Hours (Table) 09/09/24 Range/Units 04:18 Anion Gap 13.50 H (4.00-12.00) mmol/L BUN/Creatinine Ratio 22.80 H (12.00-20.00) Ratio Glucose 112 H (70-110) mg/dL Total Bilirubin 1.9 H (0.3-1.2) mg/dL Total Protein 5.8 L (6.2-8.2) g/dL Albumin 3.7 L (3.8-4.9) g/dL
--- NOTE | 2024-09-09 12:01 | P.PN ---
Subjective Progress Note Date: 09/09/24 CHIEF COMPLAINT: Weakness HISTORY OF PRESENT ILLNESS: Patient presented with weakness and fatigue. He is followed by cardiology for bradycardia and CHF exacerbation. They have cleared him for discharge. Patient denies any abdominal pain. He does report daily alcohol use. He reports drinking wine for over 50 years. Afebrile. WBC is 6.15 total bilirubin 1.9 LFTs are normal. They are working on discharging patient today. PHYSICAL EXAM: VITAL SIGNS: Reviewed. GENERAL: Well-developed in no acute distress. ABDOMEN: Soft. Nondistended. Nontender. No right upper quadrant tenderness. NEUROLOGIC: Alert and oriented. Cranial nerves II through XII grossly intact. ASSESSMENT: 1. Thickened gallbladder wall on ultrasound likely related to patient's daily alcohol use. Abdomen nontender. Patient has no evidence of cholecystitis. PLAN: -No surgical intervention planned -Discussed alcohol abstinence -Patient is stable for discharge from surgical standpoint when medically cleared [facility] note has been reviewed by physician. Signing provider agrees with the documented findings, assessment, and plan of care. Attestation Patient seen and examined at bedside. Found to have thickened gallbladder on ultrasound. No plan for surgical intervention as the patient is having no abdominal pain. Recommending alcohol cessation. Surgically stable for discharge. Bishop Brown, Objective - Vital Signs Vital signs: Vital Signs Temp 97.8 F 09/09/24 08:00 Pulse 60 09/09/24 08:00 Resp 16 09/09/24 08:00 BP 145/73 09/09/24 08:00 Pulse Ox 98 09/09/24 08:00 FiO2 Intake & Output 09/08/24 09/09/24 09/09/24 18:59 06:59 18:59 Intake Total 1270 118 Output Total 400 1350 Balance 870 -1350 118 Weight 92.6 kg Intake: Oral 1270 118 Output: Urine 400 1350 Other: Voiding Method Toilet Toilet # Voids 3 - Labs CBC & Chem 7: 09/09/24 04:18 09/09/24 04:18 Labs: Abnormal Lab Results - Last 24 Hours (Table) 09/09/24 Range/Units 04:18 Anion Gap 13.50 H (4.00-12.00) mmol/L BUN/Creatinine Ratio 22.80 H (12.00-20.00) Ratio Glucose 112 H (70-110) mg/dL Total Bilirubin 1.9 H (0.3-1.2) mg/dL Total Protein 5.8 L (6.2-8.2) g/dL Albumin 3.7 L (3.8-4.9) g/dL
--- NOTE | 2024-09-09 16:15 | P.DS ---
Providers Date of admission: 09/05/24 14:36 Expected date of discharge: 09/09/24 Attending physician: Kenney Lopez Consults: 09/05/24 14:34 Consult Physician Routine Consulting Provider: [facility] Consult Reason/Comments: Acute pulmonary edema, bigeminy Do you want consulting provider notified?: Yes 09/06/24 17:43 Consult Physician Routine Consulting Provider: Alvaro Sands Consult Reason/Comments: US concerning for acute cholecystitis, pt currently denies pain/complaints Do you want consulting provider notified?: Yes Primary care physician: [facility] Hospital Course: Discharge Diagnosis: Sinus bradycardia with frequent PVCs in bigeminy pattern. Patient was taken to Urologist [facility] for permanent pacemaker placement on 09/06/2024 and pacemaker revision on 09/07/2024. Pacemaker interrogation report then completed and per science consultant reported to show normal functioning. Patient being discharged on Eliquis 5 mg twice daily, amlodipine 10 mg daily, and Lasix 40 mg daily. Patient to follow-up outpatient with science consultant in 1 week. Generalized weakness, secondary to above Chronic atrial fibrillation with slowed ventricular rate Acute on chronic diastolic heart failure Hypertension Chronic daily alcohol use/abuse. Recommend cessation of alcohol use. Hyperbilirubinemia. Likely secondary to daily alcohol use/abuse. Hepatomegaly with gallbladder wall thickening and pericholecystic fluid, rule out acute cholecystitis. Patient was evaluated by general surgery secondary to elevated bilirubin and liver ultrasound finding showing hepatomegaly with gallbladder wall thickening and pericholecystic fluid concerning for acute cholecystitis. General surgery stated no surgical intervention warranted suspect thickened gallbladder wall findings on ultrasound secondary to patient's daily alcohol use as patient is asymptomatic for any signs of acute cholecystitis. Hospital course: Patient is a very pleasant 79-year-old male with past medical history of daily alcohol use/abuse and paroxysmal atrial fibrillation. Presented to the hospital on 09/05/2024 secondary to reports of shortness of breath. Patient reported experiencing increased shortness of breath over the past 2 weeks, increased lo wer extremity edema, and orthopnea. He initially scheduled outpatient appointment with his PCP for evaluation but was instructed that he had to come into the hospital to be evaluated for abnormal heart rhythm and concerns of fluid volume overload. Upon arrival to our facility, patient underwent evaluation in the emergency department. Vital signs upon arrival show blood pressure 180/72, heart rate 42, respiratory rate 18, temp 97.5 F, and SpO2 of 95% on room air. EKG completed showing sinus bradycardia with bigeminy at a reported rate of 53 bpm. Chest x-ray showing right basilar infiltrate and small effusion with mild central venous congestion. Labs completed and reviewed. CBC was unremarkable. Coagulation profile showing elevated PT of 13.0 and INR of 1.2. BMP showing hyperchloremia with chloride of 109 and mild prerenal azotemia with BUN of 21. Blood glucose was 100. Initial lactate was elevated at 2.2. Lipid profile showing elevated total bili of 2.8 otherwise normal fi ndings. Troponin was 0.031 and proBNP was 3540. Liver ultrasound showing gallbladder wall thickening and pericholecystic fluid with hepatomegaly. Patient was admitted under our services with consultation to cardiology. Repeat troponin 0.032. TSH was 1.980. Liver ultrasound was completed and reviewed showing hepatomegaly with gallbladder wall thickening and pericholecystic fluid concerning for acute cholecystitis. Patient was evaluated by cardiology and taken to Urologist [facility] for permanent pacemaker placement on 09/06/2024. Patient was evaluated by general surgery secondary to elevated bilirubin and liver ultrasound finding showing hepatomegaly with gallbladder wall thickening and pericholecystic fluid concerning for acute cholecystitis. General surgery stated no surgical intervention warranted suspect thickened gallbladder wall findings on ultrasound secondary to patient's daily alcohol use as patient is asymptomatic for any signs of acute cholecystitis. On 09/07/2021, received not ification that patient's pacemaker was not capturing. Notified cardiology and patient was taken back to Urologist [facility] for pacemaker revision. He is currently doing well. Pacemaker was interrogated and report was reviewed by science consultant, Dr. Lamar. Cardiology clearing patient from their perspective recommending patient follow-up outpatient in their office with Dr. Lira in 1 week. Patient is medically optimized for discharge at this time, he is free from any complaints or concerns states he was ready to go days ago. Patient to follow-up outpatient with PCP, cardiology, general surgery as instructed. Prescriptions sent to [facility] prescription cost was covered by [employer] funds. Physical exam: Vital signs reviewed and stable. General: Nontoxic, no distress and appears stated age. Derm: Skin warm and dry, normal coloration for ethnicity. Head: Atraumatic, normocephalic and symmetric. Eyes: EOM's intact, no lid lag, and anicteric sclera Mouth: no lip lesions, mucus membranes moist Cardiovascular: Regular rate and rhythm. Systolic murmur, positive posterior tibial pulses bilaterally, and cap refill < 2 seconds. Pacemaker insertion site left anterior chest no surrounding erythema or drainage. Left arm in sling. Lungs: Respirations even, regular, and unlabored on room air. Lungs CTA bilaterally, no rhonchi, no rales, no wheezing, and no accessory muscle usage. Abdominal: soft, nontender to palpation, no guarding, no appreciable organomegaly Ext: Movement and sensation intact. No gross muscle atrophy, scant bilateral lower extremity edema, no contractures Neuro: Speech clear, face symmetrical and CN II-XII grossly intact with no noted focal neuro deficits Psych: Alert and oriented to person, place, time, and situation. Appropriate and pleasant affect. A total of 39 minutes of time were spent preparing this complex discharge summary. Pt was discharged on 09/09/2024 at 9:58 AM. Patient was seen independently by Nurse Practitioner. This document was prepared using [employer] dictation software. Please allow for errors in rn documentation specialist while rare they do occur. I reviewed the documentation as provided by the JOSE FRANCISCO above, who is the original author of this note. I agree with the documented assessment and plan, with the following changes: none Patient Condition at Discharge: Stable Plan - Discharge Summary New Discharge Prescriptions: New Bumetanide [BUMEX] 1 mg PO DAILY 30 Days #30 tab Metoprolol Succinate (ER) [Toprol XL] 25 mg PO DAILY 30 Days #30 tab Apixaban [Eliquis] 5 mg PO BID #60 tab Losartan [Cozaar] 50 mg PO DAILY 30 Days #30 tab amLODIPine [Norvasc] 5 mg PO DAILY 30 Days #30 tab Discontinued Aspirin EC [Ecotrin] 325 mg PO DAILY@1600 Discharge Medication List Apixaban [Eliquis] 5 mg PO BID #60 tab 09/06/24 [Rx] Bumetanide [BUMEX] 1 mg PO DAILY 30 Days #30 tab 09/09/24 [Rx] Losartan [Cozaar] 50 mg PO DAILY 30 Days #30 tab 09/09/24 [Rx] Metoprolol Succinate (ER) [Toprol XL] 25 mg PO DAILY 30 Days #30 tab 09/09/24 [Rx] amLODIPine [Norvasc] 5 mg PO DAILY 30 Days #30 tab 09/09/24 [Rx] Follow up Appointment(s)/Referral(s): Chong Gregory DO [STAFF PHYSICIAN] - 09/24/24 12:45 pm (Device check at 2:30 09/24 ) Alvaro Sands DO [Medical Doctor] - 09/17/24 8:30 am (Patient will receive paperwork before appointment , please fill it out and take it with you. Please bring your ID , insurance cards and list of medication.) [facility] [Primary Care Provider] - 1-2 days Patient Instructions/Handouts: Pacemaker (DC) Activity/Diet/Wound Care/Special Instructions: Activity: As tolerated. Non-weight bearing of left arm until further instructed by science consultant next week at your follow-up appointment. Diet: Heart healthy and carb consistent diet. Avoid salts, or foods with hidden salts such as canned or boxed foods and frozen dinners. Extra salt makes your heart work harder and traps the fluid in your body for longer. Special Instructions: Take all of your medications as directed and remember to keep all of your doctor's appointments and follow-up as needed. Again, I would like to thank you for your service it is always an honor and a blessing to be given the opportunity to provide care for a !!! Thank you for allowing us to participate in your care, it was truly a pleasure having you for our patient!!! Discharge Disposition: HOME SELF-CARE
== END 2024-09-09 14:20 | disposition home or self-care (01) | DRG 242 ==
LOC: EC 11:14 → 3SCARD 14:36 → 6NMEDSUR 09-06 12:36
PROVIDERS: ADMIT Student in an Organized Health Care Education/Training Program; ATTEND Student in an Organized Health Care Education/Training Program
PROC: 02HK3JZ Insertion of Pacemaker Lead into Right Ventricle, Percutaneous Approach (ICD-10-PCS; 2024-09-06)
PROC: 0JH604Z Insertion of Pacemaker, Single Chamber into Chest Subcutaneous Tissue and Fascia, Open Approach (ICD-10-PCS; principal; 2024-09-06 10:15)
PROC: 02WA3MZ Revision of Cardiac Lead in Heart, Percutaneous Approach (ICD-10-PCS; 2024-09-07)
DX: I49.5 Sick sinus syndrome (principal); I50.33 Acute on chronic diastolic (congestive) heart failure; T82.110A Breakdown (mechanical) of cardiac electrode, initial encounter; E87.20 Acidosis, unspecified; I48.19 Other persistent atrial fibrillation; I11.0 Hypertensive heart disease with heart failure; R16.0 Hepatomegaly, not elsewhere classified; F10.10 Alcohol abuse, uncomplicated; T45.516A Underdosing of anticoagulants, initial encounter; E87.5 Hyperkalemia; E87.8 Other disorders of electrolyte and fluid balance, not elsewhere classified; K82.8 Other specified diseases of gallbladder; E80.6 Other disorders of bilirubin metabolism; Y71.1 Therapeutic (nonsurgical) and rehabilitative cardiovascular devices associated with adverse incidents; Z79.01 Long term (current) use of anticoagulants; Z79.82 Long term (current) use of aspirin
CPT/HCPCS: 33207; 33215; 36415; 71045; 71046; 76705; 80048; 80053; 80076; 83605; 83735; 83880; 84443; 84484; 85025; 85027; 85610; 85730; 86850; 86900; 86901; 93005; 93306; 96365; 96366; 96372; 99285

== ENCOUNTER 2024-11-26 11:10 | Day surgery (SDC) | payer MEDICARE, OTHER ==
[~2024-11-26 11:10] MED LIST: ALPRAZolam 0.25 MG TAB PO PRN; ALPRAZolam 0.5 MG TAB PO PRN; NITROGLYCERIN SL TABS 0.4 MG TAB SUBLINGUAL PRN
[2024-11-26] MEDS: IV FLUID CONTINUATION 1,000 ML IV ONE (11:28)
[2024-11-26] MEDS: HEPARIN SODIUM 1,000 UN/ML (10ML VL) IVP ONE ×4 (12:16→13:34)
[2024-11-26] MEDS: HEPARIN SODIUM,PORCINE 10,000 UNIT in SODIUM CHLORIDE 0.9% 1,000 ML IRRIGATION ONE (12:16)
[2024-11-26] MEDS: HEPARIN SODIUM,PORCINE (1 ML) 2,500 UNIT in SODIUM CHLORIDE 0.9% 250 ML IRRIGATION ONE (12:17)
[2024-11-26] MEDS: MIDAZOLAM 2 MG/2 ML VIAL IVP ONE ×2 (12:31→12:36)
[2024-11-26] MEDS: fentaNYL (PF) 50 MCG/ML 2 ML AMP IVP ONE ×2 (12:31→12:36)
[2024-11-26] MEDS: LIDOCAINE 1% INJ 10MG/ML (20 ML MDV) SQ ONE (12:34)
[2024-11-26] MEDS: VERAPAMIL SYRINGE (5 MG/10 ML) INTRAARTER ONE (12:37)
[2024-11-26] MEDS: CLOPIDOGREL 75 MG TAB PO ONE (12:56)
[2024-11-26] MEDS: IOPAMIDOL-370 100ML BTL INJ ONE ×2 (13:06→13:36)
[2024-11-26] MEDS: NITROGLYCERIN 1000MCG/10ML SYRINGE INTRACORON ONE (13:07)
[2024-11-26] MEDS: SODIUM CHLORIDE 0.9% 1,000 ML IV ONE (13:24)
[2024-11-26] MEDS ORDERED: MAG HYDROX/AL HYDROX/SIMETH 30 ML CUP PO PRN (14:13)
[2024-11-26] MEDS ORDERED: ZOLPIDEM 5 MG TAB PO PRN (14:13)
[2024-11-26] MEDS ORDERED: RX INFO: IV CONTRAST WAS GIVEN 1 EACH MISC MISCELLANE PRN (14:13)
[2024-11-26] MEDS ORDERED: ATROPINE SULFATE 0.1 MG/ML 10ML SYRINGE IV PRN (14:13)
[2024-11-26] MEDS: ASPIRIN 325 MG TAB PO STA (16:25)
[2024-11-26] MEDS: SODIUM CHLORIDE 0.9% 1,000 ML in EMPTY BAG 1 BAG IV SCH (16:26)
--- NOTE | 2024-11-26 16:52 | P.PRCINT ---
Percutaneous Coronary Int. - Percutaneous Coronary Intervention Percutaneous Coronary Intervention: PROCEDURES PERFORMED: Left heart catheterization, bilateral coronary angiography, ultrasound guided arterial access, PCI proximal LAD with a 4.0 x 12mm Xience CLINT, post dilated with a 4.5mm NC, shockwave lithotripsy LAD, IVUS LAD INDICATION: Abnormal stress test, NYHA class 3 symptoms of ROBERTS CONSENT:I have discussed the risks, benefits and alternative therapies for the above-mentioned procedure and for both sedation/analgesia as well as necessary blood product administration, if indicated, as they pertain to this patient. The patient has indicated understanding and acceptance of the risks and procedures discussed. PROCEDURE: After the risks, benefits and alternatives of the above mentioned procedure explained in detail with the patient, informed consent was obtained. Patient was taken to the catheterization lab and prepped and draped in usual fashion. Ultrasound guidance was used to assess for arterial access. 1% lidocaine was used to anesthetize the right radial artery. A 6-Bolivian sheath was placed in the right radial artery using modified Seldinger technique and ultrasound guidance. Left coronary angiography was performed with a 5-Bolivian JL 3.5 catheter and right coronary angiography was performed with a 5-Bolivian FR5 catheter in various views. A 5-Bolivian FR5 catheter was inserted into the left ventricle and pressure measurements were obtained. The decision was made to perform PCI of LAD. A 6-Bolivian CLS 4.0 catheter was used to engage the left main. A 0.014 BMW wire was advanced to diagonal branch and additional 0.014 BMW wire was advanced to the distal LAD. Predilation was performed with a 3.5 mm noncompliant balloon. Intravascular ultrasound showed reference vessel approximately 4.25-4.5 mm however some post stenotic dilation. Shock wave lithotripsy was performed with a 4.0 mm balloon 3 passes. Next a 4.0 x 12 mm Xience CLINT was placed in the proximal LAD jailing the diagonal branch however without significant impingement and HARMEET 3 flow. This time was postdilated with a 4.5 mm balloon. Repeat intravascular ultrasound showed well- expanded stent with no significant dissection or abnormalities. Final angiograms were performed. Preintervention there was 80% stenosis and HARMEET-3 flow postintervention there was less than 10% stenosis with HARMEET 3 flow. The right radial sheath was removed and a TR band was placed with hemostasis achieved. The patient tolerated the procedure well. Patient was transported back to the post catheterization holding area in stable condition. Conscious Sedation: Patient was monitored under the direct supervision of myself for conscious sedation using Versed and fentanyl for a total duration of 59 minutes HEMODYNAMICS: Ao: 129/78 LV: 127/3, LVEDP 9 SELECTIVE CORONARY ARTERIOGRAPHY: LEFT MAIN: The left main is a large caliber vessel which bifurcates into the LAD and circumflex. There is no significant stenosis. LEFT ANTERIOR DESCENDING CORONARY ARTERY: LAD is a large caliber vessel which wraps around to the apex. There is a proximal 80% LAD stenosis which is calcified at the level of a moderate caliber diagonal 1 branch. LEFT CIRCUMFLEX CORONARY ARTERY: Left circumflex is a moderate to large caliber vessel with mild luminal irregularities RIGHT CORONARY ARTERY: The right coronary artery is a large caliber vessel which gives off a PDA and PLV branch and is the dominant vessel. There is mid RCA 20- 30% stenosis FINAL IMPRESSION: 1. CAD as described above with 80% proximal LAD stenosis and 20-30% RCA stenosis 2. Normal left sided filling pressures 3. S/p PCI proximal LAD with a 4.0 x 12mm Xience CLINT, post dilated with a 4.5mm NC PLAN: 1. Aggressive risk factor modification per most recent ACC/AHA guidelines. 2. Continue triple therapy for 1 week then Eliquis and Plavix for 6 months 3. Goal LDL < 70
[2024-11-26] MEDS: ATORVASTATIN 40 MG TAB PO SCH (21:25)
[2024-11-26] MEDS: SODIUM CHLORIDE 0.9% 1,000 ML IV SCH (21:29)
[2024-11-27 04:53] LABS: Basophils # (A) 0.1 k/uL (0-0.2); Basophils % (A) 1 %; Eosinophils # (A) 0.2 k/uL (0-0.7); Eosinophils % (A) 4 %; HCT 43.5 % (39.0-53.0); HGB 14.1 gm/dL (13.0-17.5); Lymphocytes # (A) 2.5 k/uL (1.0-4.8); Lymphocytes % (A) 40 %; MCH 31.2 pg (25.0-35.0); MCHC 32.4 g/dL (31.0-37.0); MCV 96.2 fL (80.0-100.0); Mean Platelet Volume 8.1; Monocytes # (A) 0.6 k/uL (0-1.0); Monocytes % (A) 9 %; Neutrophils # (A) 2.6 k/uL (1.3-7.7); Neutrophils % (A) 43 %; Platelet Count 168 k/uL (150-450); RBC 4.52 m/uL (4.30-5.90); RDW 12.7 % (11.5-15.5); WBC 6.1 k/uL (3.8-10.6)
[2024-11-27 05:04] LABS: African American GFR (CKD) 86 (>60 ml/min/1.73 sqM); Anion Gap 7 mmol/L; Blood Urea Nitrogen 20 mg/dL (9-20); Calcium 9.2 mg/dL (8.4-10.2); Carbon Dioxide 28 mmol/L (22-30); Chloride 104 mmol/L (98-107); Glucose 107 mg/dL (74-99); Non-African American GFR(CKD) 74 (>60 ml/min/1.73 sqM); Potassium 3.9 mmol/L (3.5-5.1); Sodium 139 mmol/L (137-145)
[2024-11-27 07:36] VITALS: BP 156/80; PULSE 60; RESP 15; TEMP 98.6
[2024-11-27] MEDS: ASPIRIN 81 MG PO SCH (08:37)
[2024-11-27] MEDS: amLODIPine 5 MG TAB PO SCH (08:37)
[2024-11-27] MEDS: METOPROLOL SUCCINATE (ER) 25 MG TAB.ER.24H PO SCH (08:37)
[2024-11-27] MEDS: LOSARTAN 50 MG TAB PO SCH (08:37)
[2024-11-27] MEDS: APIXABAN 5 MG TAB PO SCH (08:37)
[2024-11-27] MEDS: BUMETANIDE 1 MG TAB PO SCH (08:37)
[2024-11-27] MEDS: CLOPIDOGREL 75 MG TAB PO SCH (08:43)
--- NOTE | 2024-11-27 09:26 | P.DS ---
Providers Attending physician: Chong Gregory DO Consults: 11/26/24 14:13 Consult Physician Routine Consulting Provider: [facility] Consult Reason/Comments: Post Interventional patient Do you want consulting provider notified?: Already Contacted Primary care physician: [facility] Hospital Course: This is an 79-year-old male who underwent cardiac catheterization yesterday with Dr. Gregory revealing 80% proximal LAD stenosis and 20 to 30% RCA stenosis with normal left-sided filling pressures. Patient underwent PCI of the proximal LAD. Patient is doing well post procedure with no immediate complications noted. No complaints of chest pain or shortness of breath. He has been up ambulating this morning. Vital signs are stable. The patient was deemed stable for discharge home today from a cardiac standpoint. Patient will be continued on triple therapy with Eliquis, Plavix, and aspirin for 1 week. After 1 week he will discontinue his aspirin and continue with Eliquis and Plavix for 6 months. Co ntinue statin therapy with LDL goal less than 70. The patient's prescriptions were sent to the ID per his request. Please see EMR for further hospital course details. Discharge Diagnosis Coronary artery disease, status post stenting of the proximal LAD Nurse practitioner note has been reviewed by physician. Signing provider agrees with the documented findings, assessment, and plan of care documented by RESEARCH/PROGRAM DIRECTOR as a scribe. Plan - Discharge Summary Discharge Rx Participant: No New Discharge Prescriptions: New Atorvastatin [Lipitor] 40 mg PO HS #90 tab Aspirin 81 mg PO DAILY #7 tab Clopidogrel [Plavix] 75 mg PO DAILY #90 tab Continue Bumetanide [BUMEX] 1 mg PO DAILY 30 Days #30 tab Metoprolol Succinate (ER) [Toprol XL] 25 mg PO DAILY 30 Days #30 tab Apixaban [Eliquis] 5 mg PO BID #60 tab Losartan [Cozaar] 50 mg PO DAILY 30 Days #30 tab amLODIPine [Norvasc] 5 mg PO DAILY 30 Days #30 tab Discharge Medication List Apixaban [Eliquis] 5 mg PO BID #60 tab 09/06/24 [Rx] Bumetanide [BUMEX] 1 mg PO DAILY 30 Days #30 tab 09/09/24 [Rx] Losartan [Cozaar] 50 mg PO DAILY 30 Days #30 tab 09/09/24 [Rx] Metoprolol Succinate (ER) [Toprol XL] 25 mg PO DAILY 30 Days #30 tab 09/09/24 [Rx] amLODIPine [Norvasc] 5 mg PO DAILY 30 Days #30 tab 09/09/24 [Rx] Aspirin 81 mg PO DAILY #7 tab 11/27/24 [Rx] Atorvastatin [Lipitor] 40 mg PO HS #90 tab 11/27/24 [Rx] Clopidogrel [Plavix] 75 mg PO DAILY #90 tab 11/27/24 [Rx] Follow up Appointment(s)/Referral(s): Chong Gregory DO [STAFF PHYSICIAN] - 12/03/24 8:30 am (FOLLOW UP APPOINTMENT HAS BEEN MADE. )
== END 2024-11-27 11:01 | disposition home or self-care (01) ==
LOC: CATHCVL 11:10 → 6NMEDSUR 13:30 → CATHCVL 11-27 11:01
PROVIDERS: ATTEND Internal Medicine
DX: I25.10 Atherosclerotic heart disease of native coronary artery without angina pectoris (principal); I50.32 Chronic diastolic (congestive) heart failure; I48.19 Other persistent atrial fibrillation; Z95.5 Presence of coronary angioplasty implant and graft; Z79.02 Long term (current) use of antithrombotics/antiplatelets; Z79.899 Other long term (current) drug therapy
CPT/HCPCS: 92978; 93458; 92972; 80048; 85025; 99152; 99153; C9600; C1769 ×3; C1894; C1753; C1874; C1725 ×3; C1761; J2250; J1644 ×3; J2003; J3010; Q9967; J2305